=== PATIENT | female | born 1935 | race Caucasian/White ===

== ENCOUNTER 2021-04-01 10:33 | Emergency (ER) | payer MEDICARE, OTHER ==
[~2021-04-01] VITALS: Ht 157.5 cm; Wt 61.8 kg
[2021-04-01] MEDS ORDERED: NS IV 1000 ML 1,000 ML IV STA (11:09)
[2021-04-01 11:24] LABS: BASOPHILS % (AUTO) 1 % (0-10); EOSINOPHILS % (AUTO) 3 % (0-10); HEMATOCRIT 39 % (35-52); HEMOGLOBIN 12.5 G/DL (11.5-16.0); LYMPHOCYTES # (AUTO) 1.7 X 10^3 (1.0-4.0); LYMPHOCYTES % (AUTO) 31 % (12-44); MEAN CORPUSCULAR HEMOGLOBIN 29 PG (25-34); MEAN CORPUSCULAR HGB CONC 32 G/DL (32-36); MEAN CORPUSCULAR VOLUME 92 FL (80-99); MONOCYTES # (AUTO) 0.4 X 10^3 (0.0-1.0); MONOCYTES % (AUTO) 7 % (0-12); NEUTROPHILS # (AUTO) 3.2 X 10^3 (1.8-7.8); NEUTROPHILS % (AUTO) 58 % (42-75); PLATELET COUNT 313 10^3/uL (130-400); WHITE BLOOD COUNT 5.6 10^3/uL (4.3-11.0)
[2021-04-01 11:25] LABS: EOSINOPHILS # (AUTO) 0.2 10^3/uL (0.0-0.3)
--- NOTE | 2021-04-01 11:26 | ED General ---
General Chief Complaint: General Problems/Pain Stated Complaint: WEAKNESS IN ARMS AND LEGS | HIGH BP Nursing Triage Note: Patient reports she felt funny and "went down" on while shopping in [place], [place], states she went to Dr. Almonte's office that day and had her blood pressure checked, then went home. She reports bilateral arm and leg aches/generalized weakness/shakiness since . Nursing Sepsis Screen: No Definite Risk Source of Information: Patient, Spouse History of Present Illness Date Seen by Provider: Apr 01, 2021 Time Seen by Provider: 10:36 Initial Comments 85-year-old female presenting with complaints of weakness and shaking sensation in her arms and legs. She states that her arms not feel right. She had an episode on while they were shopping in [place] where she became weak in her legs and arms were shaking and her had to help her out to the car. She was laying in the back of the vehicle until he got to [place] and went to Dr. Almonte's office. However Dr. Almonte was not in and the nurse had reportedly taken her blood pressure and it was high for her according to the patient. She did not have any other testing or evaluation. She has an appointment to be seen Saturday with Dr. Grove for further evaluation. However today when she woke up she was feeling worse and so her brought her to the ED. He states that her legs have seemed improved as she is able to walk and get around better. She d oes have history of dementia and normally is doing things with her hands to help keep her mind busy. She usually does embroidery and coloring however she has not done any of that since Saturday. She states currently that she does not feel like she could do any embroidery or even thread a needle due to her weakness. She has had a mild headache but did not want to take any medicine for it. She Denies chest pain, vomiting, diarrhea, dysuria, abdominal pain, fall or head injury. She has had some nausea but not actually vomited. Associated Systoms: No Chest Pain, No Cough, No Diaphoresis, No Fever/Chills; Headaches, Loss of Appetite, Malaise, Nausea/Vomiting (nausea but no vomiting); No Rash, No Seizure; Shortness of Air; No Syncope; Weakness (generalized ) Allergies and Home Medications Allergies Coded Allergies: No Known Drug Allergies (Unverified , 04/01/21) Home Medications Cephalexin 500 Mg Capsule, 500 MG PO TID Prescribed by: ANDREW MARISCAL on 04/01/21 1258 Patient Home Medication List Home Medication List Reviewed: Yes Review of Systems Review of Systems Constitutional: see HPI EENTM: see HPI Respiratory: see HPI Cardiovascular: see HPI Gastrointestinal: see HPI Genitourinary: see HPI Musculoskeletal: no symptoms reported Skin: No rash Psychiatric/Neurological: See HPI Hematologic/Lymphatic: Denies Blood Clots Past Mqbdmrv-Cgqjuz-Knaegb Hx Past Med/Social Hx: Reviewed Nursing Past Med/Soc Hx Patient Social History Alcohol Use: Denies Use Smoking Status: Never a Smoker 2nd Hand Smoke Exposure: No Recent Infectious Disease Expo: No Recent Hopitalizations: No Seasonal Allergies Seasonal Allergies: No Past Medical History Surgeries: Yes Gallbladder, Pacemaker Respiratory: No Cardiac: Yes Neurological: Yes Dementia Genitourinary: No Gastrointestinal: No Musculoskeletal: No Endocrine: No HEENT: No Cancer: No Psychosocial: No Integumentary: No Physical Exam Vital Signs Vital Signs - First Documented 04/01/21 11:02 Temp 36.4 Pulse 80 Resp 15 B/P (MAP) 144/76 (98) Pulse Ox 96 O2 Delivery Room Air Capillary Refill : Less Than 3 Seconds Height, Weight, BMI Height: '" Weight: lbs. oz. kg; 24.00 BMI Method: General Appearance: No Apparent Distress, WD/WN HEENT: PERRL/EOMI, Pharynx Normal Neck: Full Range of Motion, Normal Inspection, Non Tender, Supple Respiratory: Chest Non Tender, Lungs Clear, Normal Breath Sounds, No Accessory Muscle Use, No Respiratory Distress Cardiovascular: Regular Rate, Rhythm, Normal Peripheral Pulses Gastrointestinal: Normal Bowel Sounds, No Pulsatile Mass, Non Tender, Soft Rectal: Deferred Extremity: Normal Capillary Refill, Normal Inspection, Normal Range of Motion, Non Tender, No Calf Tenderness, No Pedal Edema Neurologic/Psychiatric: Alert, Oriented x3, No Motor/Sensory Deficits (moving all extremities and sensation intact to light touch bilateral extremities upper and lower. 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 Norm as Tested Skin: Normal Color, Warm/Dry; No Rash Progress/Results/Core Measures Suspected Sepsis Recent Fever Within 48 Hours: No Infection Criteria Present: None New/Unexplained Altered Menta: No Sepsis Screen: No Definite Risk SIRS Temperature: Pulse: 80 Respiratory Rate: 15 Laboratory Tests 04/01/21 11:15: White Blood Count 5.6 Blood Pressure 144 /76 Mean: 98 Laboratory Tests 04/01/21 11:15: Creatinine 1.27, Platelet Count 313, Total Bilirubin 0.3 Results/Orders Lab Results Laboratory Tests Test 04/01/21 11:15 04/01/21 12:10 Range/Units White Blood Count 5.6 4.3-11.0 10^3/uL Red Blood Count 4.26 L 4.35-5.85 10^6/uL Hemoglobin 12.5 11.5-16.0 G/DL Hematocrit 39 35-52 % Mean Corpuscular Volume 92 80-99 FL Mean Corpuscular Hemoglobin 29 25-34 PG Mean Corpuscular Hemoglobin Concent 32 32-36 G/DL Red Cell Distribution Width 13.0 10.0-14.5 % Platelet Count 313 130-400 10^3/uL Mean Platelet Volume 9.0 7.4-10.4 FL Immature Granulocyte % (Auto) 0 % Neutrophils (%) (Auto) 58 42-75 % Lymphocytes (%) (Auto) 31 12-44 % Monocytes (%) (Auto) 7 0-12 % Eosinophils (%) (Auto) 3 0-10 % Basophils (%) (Auto) 1 0-10 % Neutrophils # (Auto) 3.2 1.8-7.8 X 10^3 Lymphocytes # (Auto) 1.7 1.0-4.0 X 10^3 Monocytes # (Auto) 0.4 0.0-1.0 X 10^3 Eosinophils # (Auto) 0.2 0.0-0.3 10^3/uL Basophils # (Auto) 0.0 0.0-0.1 10^3/uL Immature Granulocyte # (Auto) 0.0 0.0-0.1 10^3/uL Sodium Level 140 135-145 MMOL/L Potassium Level 4.1 3.6-5.0 MMOL/L Chloride Level 106 98-107 MMOL/L Carbon Dioxide Level 28 21-32 MMOL/L Anion Gap 6 5-14 MMOL/L Blood Urea Nitrogen 11 7-18 MG/DL Creatinine 1.27 0.60-1.30 MG/DL Estimat Glomerular Filtration Rate 40 BUN/Creatinine Ratio 9 Glucose Level 96 70-105 MG/DL Calcium Level 8.9 8.5-10.1 MG/DL Corrected Calcium 9.1 8.5-10.1 MG/DL Magnesium Level 1.9 1.6-2.4 MG/DL Total Bilirubin 0.3 0.1-1.0 MG/DL Aspartate Amino Transf (AST/SGOT) 14 5-34 U/L Alanine Aminotransferase (ALT/SGPT) 8 0-55 U/L Alkaline Phosphatase 82 40-136 U/L Troponin I < 0.30 <0.30 NG/ML Pro-B-Type Natriuretic Peptide 1680.0 H <75.0 PG/ML Total Protein 6.2 L 6.4-8.2 GM/DL Albumin 3.7 3.2-4.5 GM/DL Salicylates Level < 0.3 L 5.0-20.0 MG/DL Acetaminophen Level < 10 L 10-30 UG/ML Serum Alcohol < 10 <10 MG/DL Urine Color YELLOW Urine Clarity CLOUDY Urine pH 7.0 5-9 Urine Specific [place] 1.015 L 1.016-1.022 Urine Protein NEGATIVE NEGATIVE Urine Glucose (UA) NEGATIVE NEGATIVE Urine Ketones NEGATIVE NEGATIVE Urine Nitrite NEGATIVE NEGATIVE Urine Bilirubin NEGATIVE NEGATIVE Urine Urobilinogen 0.2 < = 1.0 MG/DL Urine Leukocyte Esterase 2+ H NEGATIVE Urine RBC (Auto) NEGATIVE NEGATIVE Urine RBC NONE /HPF Urine WBC 50-100 H /HPF Urine Squamous Epithelial Cells 10-25 H /HPF Urine Crystals NONE /LPF Urine Bacteria MODERATE H /HPF Urine Casts NONE /LPF Urine Mucus NEGATIVE /LPF Urine Culture Indicated YES Urine Opiates Screen NEGATIVE NEGATIVE Urine Oxycodone Screen NEGATIVE NEGATIVE Urine Methadone Screen NEGATIVE NEGATIVE Urine Propoxyphene Screen NEGATIVE NEGATIVE Urine Barbiturates Screen NEGATIVE NEGATIVE Ur Tricyclic Antidepressants Screen POSITIVE H NEGATIVE Urine Phencyclidine Screen NEGATIVE NEGATIVE Urine Amphetamines Screen NEGATIVE NEGATIVE Urine Methamphetamines Screen NEGATIVE NEGATIVE Urine Benzodiazepines Screen NEGATIVE NEGATIVE Urine Cocaine Screen NEGATIVE NEGATIVE Urine Cannabinoids Screen NEGATIVE NEGATIVE My Orders Orders - ANDREW MARISCAL MD Ua Culture If Indicated (04/01/21 10:42) Cbc With Automated Diff (04/01/21 11:07) Comprehensive Metabolic Panel (04/01/21 11:07) Alcohol (04/01/21 11:07) Drug Screen Stat (Urine) (04/01/21 11:07) Acetaminophen (04/01/21 11:07) Salicylate (04/01/21 11:07) Ekg Tracing (04/01/21 11:07) Ed Iv/Invasive Line Start (04/01/21 11:07) Monitor-Rhythm Ecg Trace Only (04/01/21 11:07) Magnesium (04/01/21 11:07) Troponin I Fs (04/01/21 11:07) Probnp Fs (04/01/21 11:07) Ct Head Wo (04/01/21 11:07) Ns Iv 1000 Ml (Sodium Chloride 0.9%) (04/01/21 11:09) Chest 1 View Ap/Pa Only (04/01/21 11:09) Urine Culture (04/01/21 12:10) Ceftriaxone (Rocephin) (04/01/21 12:41) Vital Signs/I&O 04/01/21 11:02 Temp 36.4 Pulse 80 Resp 15 B/P (MAP) 144/76 (98) Pulse Ox 96 O2 Delivery Room Air Capillary Refill : Less Than 3 Seconds Blood Pressure Mean: 98 Progress Note #1: Progress Note Check labs as well as electrolytes with blood work and urinalysis to look for UTI her electrolyte abnormality to cause her symptoms. CT of her head to look for possible stroke or mass. Chest x-ray to look for pneumonia or fluid collection. Cardiac enzymes and EKG look for heart attack or cardiac source. G julián IV fluids to help with hydration as patient states she cannot urinate. She reports urinating prior to coming to the ED so she could not pee when she got here. Differential diagnosis includes UTI, electrolyte imbalance, stroke, cardiac event, [place], pneumonia, Progress Note #2: Progress Note CBC and chemistry are stable without acute significant amount. Her cardiac enzymes are negative for acute coronary syndrome or pneumonia. Her chest x-ray does not show acute process and her CT head shows chronic age-related changes. She has findings for urinary tract infection on her UA. Her drug and toxin show only the tricyclic's that she is prescribed. As she is not showing signs of stroke, heart attack, pneumonia, electrolyte imbalance will treat for the UA showing UTI. Cover with Rocephin here and discharged on cephalexin. Counseled on follow-up and return precautions. Advised to keep the appointment on Saturday to see Dr. Almonte and return sooner if more concerns and problems. Push fluids at home and take the full course of antibiotics. ECG Initial ECG Impression Date: Apr 01, 2021 Initial ECG Impression Time: 11:19 Initial ECG Rate: 74 Initial ECG Rhythm: Normal Sinus Initial ECG Comparisson: No Previous ECG Available Comment Atrial sensed ventricular paced rhythm with a rate of [address] elevation. DC interval 176 ms. QT interval 487 ms with a QTc interval 541 ms. There is no prior tracing available for comparison. Diagnostic Imaging Diagonstic Imaging: Xray Plain Films/CT/US/NM/MRI: chest Comments [email or web address] [place] [place] NAME: [employer] REC#: [id number] PT STATUS: REG ER : 1935 PHYSICIAN: ANDREW MARISCAL MD ADMIT DATE: 04/01/21/ER FS Draft Date of Exam:04/01/21 CHEST 1 VIEW AP/PA ONLY INDICATION: Shortness of breath. No prior examinations are available for comparison. FINDINGS: The heart size is normal. Lungs are clear. No pleural effusion, pneumothorax or pneumonia. Mediastinum is unremarkable. Pacemaker overlies left hemithorax. IMPRESSION: No acute cardiopulmonary abnormality. Dictated on workstation # [id number] Dict: 04/01/21 1137 Trans: 04/01/21 1144 [facility] [id number] Interpreted by: KRISH SHEIKH MD Electronically signed by: Reviewed: Reviewed by Me Diagonstic Imaging: CT Plain Films/CT/US/NM/MRI: head Comments [email or web address] [place], [place] NAME: [employer] REC#: [id number] PT STATUS: REG ER : 1935 PHYSICIAN: ANDREW MARISCAL MD ADMIT DATE: 04/01/21/ER FS Draft Date of Exam:04/01/21 CT HEAD WO PROCEDURE: CT head without contrast. TECHNIQUE: Multiple contiguous axial images were obtained through the brain without the use of intravenous contrast. Auto Exposure Controls were utilized during the CT exam to meet ALARA standards for radiation dose reduction. INDICATION: Weakness and dizziness. FINDINGS: There is prominence of the ventricles and sulci. There is no hydrocephalus or cerebral edema. There is no midline shift or mass-effect. There is no intracranial mass, hemorrhage, or extra-axial fluid collection. There is some diffuse decreased attenuation of the periventricular white matter which is nonspecific. The visualized paranasal sinuses and mastoid air cells are clear. There are no regional areas of decreased attenuation appreciated to suggest an acute CVA. IMPRESSION: 1. No acute intracranial process. 2. Age-appropriate atrophy. 3. Decreased attenuation of the periventricular white matter which is nonspecific, however, likely reflects senescent change and/or chronic small vessel ischemic disease. Dictated on workstation # [id number] Dict: 04/01/21 1138 Trans: 04/01/21 1144 [facility] [id number] Interpreted by: KRISH SHEIKH MD Electronically signed by: Reviewed: Reviewed by Me Departure Impression Primary Impression: Acute cystitis without hematuria Additional Impression: General weakness Disposition: 01 HOME, SELF-CARE Condition: Stable Departure-Patient Inst. Decision time for Depature: 12:57 Referrals: PEDRO LUIS ALMONTE MD (PCP/Family) Primary Care Physician Patient Instructions: Weakness ED, Urinary Tract Infection, Adult ED Add. Discharge Instructions: Make sure to take the full course of antibiotics. Drink plenty of water and electrolyte drinks to stay hydrated and help flush out the urine infection. Check back with Dr. Almonte on Saturday as scheduled or return sooner if more problems All discharge instructions reviewed with patient and/or family. Voiced understanding. Scripts Cephalexin (Cephalexin) 500 Mg Capsule 500 MG PO TID for UTI for 7 Days, #21 CAP 0 Refills Prov: ANDREW MARISCAL MD 04/01/21 ANDREW MARISCAL MD Apr 01, 2021 11:26
[2021-04-01 11:39] LABS: MAGNESIUM 1.9 MG/DL (1.6-2.4); SODIUM 140 MMOL/L (135-145)
[2021-04-01 11:40] LABS: ACETAMINOPHEN < 10 UG/ML (10-30); ALANINE AMINOTRANSFERASE 8 U/L (0-55); ALBUMIN 3.7 GM/DL (3.2-4.5); ALKALINE PHOSPHATASE 82 U/L (40-136); BILIRUBIN,TOTAL 0.3 MG/DL (0.1-1.0); BUN/CREATININE RATIO 9; CALCIUM 8.9 MG/DL (8.5-10.1); CARBON DIOXIDE 28 MMOL/L (21-32); CHLORIDE 106 MMOL/L (98-107); CREATININE SERUM 1.27 MG/DL (0.60-1.30); GFR ESTIMATED 40; GLUCOSE 96 MG/DL (70-105); POTASSIUM 4.1 MMOL/L (3.6-5.0); SALICYLATE < 0.3 MG/DL (5.0-20.0); TOTAL PROTEIN 6.2 GM/DL (6.4-8.2)
--- NOTE | 2021-04-01 11:44 | Diagnostic Imaging Report ---
PROCEDURE: CT head without contrast. TECHNIQUE: Multiple contiguous axial images were obtained through the brain without the use of intravenous contrast. Auto Exposure Controls were utilized during the CT exam to meet ALARA standards for radiation dose reduction. INDICATION: Weakness and dizziness. FINDINGS: There is prominence of the ventricles and sulci. There is no hydrocephalus or cerebral edema. There is no midline shift or mass-effect. There is no intracranial mass, hemorrhage, or extra-axial fluid collection. There is some diffuse decreased attenuation of the periventricular white matter which is nonspecific. The visualized paranasal sinuses and mastoid air cells are clear. There are no regional areas of decreased attenuation appreciated to suggest an acute CVA. IMPRESSION: 1. No acute intracranial process. 2. Age-appropriate atrophy. 3. Decreased attenuation of the periventricular white matter which is nonspecific, however, likely reflects senescent change and/or chronic small vessel ischemic disease. Dictated by: Dictated on workstation # [id number]
--- NOTE | 2021-04-01 11:44 | Diagnostic Imaging Report ---
INDICATION: Shortness of breath. No prior examinations are available for comparison. FINDINGS: The heart size is normal. Lungs are clear. No pleural effusion, pneumothorax or pneumonia. Mediastinum is unremarkable. Pacemaker overlies left hemithorax. IMPRESSION: No acute cardiopulmonary abnormality. Dictated by: Dictated on workstation # [id number]
[2021-04-01 12:23] LABS: BACTERIA,URINE MODERATE /HPF; BILIRUBIN,URINE NEGATIVE (NEGATIVE); CLARITY,URINE CLOUDY; COLOR,URINE YELLOW; GLUCOSE, URINE (UA) NEGATIVE (NEGATIVE); KETONES,URINE NEGATIVE (NEGATIVE); LEUKOCYTE ESTERASE ,URINE 2+ (NEGATIVE); NITRITE,URINE NEGATIVE (NEGATIVE); PROTEIN,URINE NEGATIVE (NEGATIVE); WBC,URINE 50-100 /HPF
[2021-04-01 12:30] LABS: AMPHETAMINE SCREEN, URINE NEGATIVE (NEGATIVE); BARBITURATE SCREEN URINE NEGATIVE (NEGATIVE); BENZODIAZEPINES SCREEN URINE NEGATIVE (NEGATIVE); CANNABINOID SCREEN, URINE NEGATIVE (NEGATIVE); COCAINE SCREEN URINE NEGATIVE (NEGATIVE); METHADONE STAT NEGATIVE (NEGATIVE); METHAMPHETAMINE SCREEN URINE S NEGATIVE (NEGATIVE); OPIATE SCREEN URINE NEGATIVE (NEGATIVE); OXYCODONE STAT NEGATIVE (NEGATIVE); PROPOXYPHENE STAT NEGATIVE (NEGATIVE); TRICYCLIC ANTIDEPRESSANTS SCRE POSITIVE (NEGATIVE)
[2021-04-01] MEDS ORDERED: cefTRIAXone 1,000 MG in WATER (STERILE) FOR INJECTION 10 ML IV STA (12:41)
[2021-04-01] MEDS ORDERED: CEPH500C PO (12:58)
[2021-04-01 13:15] VITALS: BP 132/70
== END 2021-04-01 13:15 | disposition home or self-care (01) ==
LOC: EDUNIT# 10:33 → ER FS 10:35
DX: N30.00 Acute cystitis without hematuria (principal); R53.1 Weakness
CPT/HCPCS: 36415; 70450; 71045; 80053; 80306; 81000; 83735; 83880; 84484; 85025; 87088; 93005; 93041; 99284; G0480 ×3; 80320; 80329

== ENCOUNTER 2022-08-13 10:57 | Emergency (ER) | payer MEDICARE, OTHER ==
[~2022-08-13] VITALS: Ht 190 cm; Wt 65.0 kg
[~2022-08-13 10:57] MED LIST: CEPH500C PO
[2022-08-13 11:25] VITALS: BP 154/53
--- NOTE | 2022-08-13 11:34 | ED General ---
General Chief Complaint: General Problems/Pain Stated Complaint: DIZZINESS Nursing Triage Note: Patient has presented to ER with cc of lightheaded and concerned about the contusions on her face from a fall a week ago. Patient reports that she stubbed her toe and fell - landing on her face. She reports that she has had some nausea but little pain. She went to urgent care and was sent to ER for evaluation. Source of Information: Patient, Family, Other (urgent care RN) History of Present Illness Date Seen by Provider: Aug 13, 2022 Time Seen by Provider: 11:03 Initial Comments 86-year-old female presenting as a referral from urgent care after a fall. Tripped and fell on her face last Saturday, did not pass out, denies really having much pain with it. She says she struggles with being lightheaded and feeling off balance and has for quite some time. She has a cane that she uses sometimes. Denies any chest pain, shortness of breath, vertigo, abdominal pain, nausea, vomiting, diarrhea, focal weakness or numbness, vision changes, headache, neck pain, back pain, or any other concerns. She is unsure of her last tetanus vaccine. She says her face healed over and has completely scabbed up. Allergies and Home Medications Allergies Coded Allergies: No Known Drug Allergies (Unverified , 04/01/21) Patient Home Medication List Home Medication List Reviewed: Yes Cephalexin (Cephalexin) 500 Mg Capsule, 500 MG PO TID Prescribed by: ANDREW MARISCAL on 04/01/21 1258 Nitrofurantoin Monohyd/M-Cryst (Macrobid 100 mg Capsule) 100 Mg Capsule, 1 TAB PO BID Prescribed by: NAVJOT HURST on 08/13/22 1222 Review of Systems Review of Systems Constitutional: dizziness; No fever EENTM: no symptoms reported Respiratory: no symptoms reported Cardiovascular: no symptoms reported Gastrointestinal: no symptoms reported Genitourinary: no symptoms reported Musculoskeletal: no symptoms reported Skin: see HPI Psychiatric/Neurological: No Symptoms Reported Hematologic/Lymphatic: No Symptoms Reported Immunological/Allergic: no symptoms reported All Other Systems Reviewed Negative Unless Noted: Yes Past Lkpnvae-Rjfkmo-Gbyqru Hx Patient Social History Tobacco Use?: No Use of E-Cig and/or Vaping dev: No Substance use?: No Alcohol Use?: No Pt feels they are or have been: No Seasonal Allergies Seasonal Allergies: No Past Medical History Surgeries: Yes Gallbladder, Pacemaker Respiratory: No Cardiac: Yes Neurological: Yes Dementia Genitourinary: No Gastrointestinal: No Musculoskeletal: No Endocrine: No HEENT: No Cancer: No Psychosocial: No Integumentary: No Physical Exam Vital Signs Vital Signs - First Documented 08/13/22 11:25 Temp 36.2 Pulse 82 Resp 18 B/P (MAP) 154/53 (86) Pulse Ox 98 O2 Delivery Room Air Capillary Refill : Height, Weight, BMI Height: '" Weight: lbs. oz. kg; 18.00 BMI Method: General Appearance: No Apparent Distress, WD/WN Eyes: Bilateral Eye Normal Inspection, Bilateral Eye PERRL, Bilateral Eye EOMI HEENT: PERRL/EOMI, Normal ENT Inspection, Pharynx Normal Neck: Full Range of Motion, Normal Inspection, Non Tender, Supple Respiratory: Chest Non Tender, Lungs Clear, Normal Breath Sounds, No Accessory Muscle Use, No Respiratory Distress Cardiovascular: Regular Rate, Rhythm, No Edema, Normal Peripheral Pulses Gastrointestinal: Normal Bowel Sounds, Non Tender, Soft; No Distended, No Guarding Back: Normal Inspection, No CVA Tenderness, No Vertebral Tenderness Extremity: Normal Capillary Refill, Normal Inspection, Normal Range of Motion, Non Tender, No Calf Tenderness, No Pedal Edema Neurologic/Psychiatric: Alert, Oriented x3, No Motor/Sensory Deficits, Normal Mood/Affect, bracer II-XII Norm as Tested, Other (Normal gait) Skin: Normal Color, Warm/Dry Lymphatic: No Adenopathy Progress/Results/Core Measures Suspected Sepsis SIRS Temperature: Pulse: 82 Respiratory Rate: 18 Laboratory Tests 08/13/22 11:47: White Blood Count 6.2 Blood Pressure 154 /53 Mean: 86 Laboratory Tests 08/13/22 11:47: Creatinine 1.19, Platelet Count 268 Results/Orders Lab Results Laboratory Tests Test 08/13/22 11:45 08/13/22 11:47 Range/Units Urine Color YELLOW Urine Clarity TURBID Urine pH 7.0 5-9 Urine Specific [place] 1.020 1.016-1.022 Urine Protein NEGATIVE NEGATIVE Urine Glucose (UA) NEGATIVE NEGATIVE Urine Ketones NEGATIVE NEGATIVE Urine Nitrite NEGATIVE NEGATIVE Urine Bilirubin NEGATIVE NEGATIVE Urine Urobilinogen 0.2 < = 1.0 MG/DL Urine Leukocyte Esterase 3+ H NEGATIVE Urine RBC (Auto) TRACE-I H NEGATIVE Urine RBC NONE /HPF Urine WBC >100 H /HPF Urine Squamous Epithelial Cells 2-5 /HPF Urine Crystals NONE /LPF Urine Bacteria FEW H /HPF Urine Casts NONE /LPF Urine Mucus NEGATIVE /LPF Urine Culture Indicated YES White Blood Count 6.2 4.3-11.0 10^3/uL Red Blood Count 4.17 3.80-5.11 10^6/uL Hemoglobin 12.1 11.5-16.0 g/dL Hematocrit 38 35-52 % Mean Corpuscular Volume 90 80-99 fL Mean Corpuscular Hemoglobin 29 25-34 pg Mean Corpuscular Hemoglobin Concent 32 32-36 g/dL Red Cell Distribution Width 12.9 10.0-14.5 % Platelet Count 268 130-400 10^3/uL Mean Platelet Volume 9.0 9.0-12.2 fL Immature Granulocyte % (Auto) 0 % Neutrophils (%) (Auto) 60 42-75 % Lymphocytes (%) (Auto) 32 12-44 % Monocytes (%) (Auto) 6 0-12 % Eosinophils (%) (Auto) 2 0-10 % Basophils (%) (Auto) 1 0-10 % Neutrophils # (Auto) 3.7 1.8-7.8 10^3/uL Lymphocytes # (Auto) 2.0 1.0-4.0 10^3/uL Monocytes # (Auto) 0.4 0.0-1.0 10^3/uL Eosinophils # (Auto) 0.1 0.0-0.3 10^3/uL Basophils # (Auto) 0.1 0.0-0.1 10^3/uL Immature Granulocyte # (Auto) 0.0 0.0-0.1 10^3/uL Sodium Level 139 135-145 MMOL/L Potassium Level 4.6 3.6-5.0 MMOL/L Chloride Level 104 98-107 MMOL/L Carbon Dioxide Level 27 21-32 MMOL/L Anion Gap 8 5-14 MMOL/L Blood Urea Nitrogen 11 7-18 MG/DL Creatinine 1.19 0.60-1.30 MG/DL Estimat Glomerular Filtration Rate 45 BUN/Creatinine Ratio 9 Glucose Level 85 70-105 MG/DL Calcium Level 8.8 8.5-10.1 MG/DL My Orders Orders - NAVJOT HURST MD Basic Metabolic Panel (08/13/22 11:28) Cbc With Automated Diff (08/13/22 11:28) Ua Culture If Indicated (08/13/22 11:28) Ct Head Wo (08/13/22 11:28) Chest 1 View Ap/Pa Only (08/13/22 11:28) Dipht,Pertuss(Acell),Tet Adult (Boostrix (08/13/22 11:45) Urine Culture (08/13/22 11:45) Medications Given in ED Current Medications Medications Dose Ordered Sig/Katie Route Start Time Stop Time Status Last Admin Dose Admin Diphtheria/ Tetanus/Acell Pertussis 0.5 ml ONCE ONCE IM 08/13/22 11:45 08/13/22 11:46 DC 08/13/22 11:56 0.5 ML Vital Signs/I&O 08/13/22 11:25 Temp 36.2 Pulse 82 Resp 18 B/P (MAP) 154/53 (86) Pulse Ox 98 O2 Delivery Room Air Capillary Refill : Blood Pressure Mean: 86 Progress Note : Progress Note 86-year-old female with above history coming in due to dizziness after hitting her head last week. ABCs were intact and vitals were stable on presentation. GCS 15 and neuro exam is intact. Has a scab to her nose but otherwise no tenderness along her face or any extremities. CT head with no acute findings. Chest x-ray on my interpretation with no displaced rib fractures, no pneumot horax, no obvious pulmonary contusion or infection. Basic labs obtained including CBC and BMP which were essentially unremarkable. Urinalysis did show concerns for infection and she is describing some urinary frequency. We will have her follow-up as an outpatient with her primary physician for PT referral and balance training. Diagnostic Imaging Diagonstic Imaging: Xray (chest), CT (head) Comments NAME: DEXTER AGUERO J MED REC#: [id number] PT STATUS: REG ER : 1935 PHYSICIAN: NAVJOT HURST MD ADMIT DATE: 08/13/22/ER FS Draft Date of Exam:08/13/22 CHEST 1 VIEW AP/PA ONLY INDICATION: Dizziness. TECHNIQUE/COMPARISON: A frontal chest was obtained at 11:31 AM and compared with 04/01/2021. FINDINGS: The heart and mediastinal silhouette are normal in appearance. The multilead pacemaker device is unchanged. There is no focal infiltrate, pneumothorax, or pleural fluid. IMPRESSION: Unchanged pacemaker device with no acute process in the chest. Dictated on workstation # [id number] Dict: 08/13/22 1219 Trans: 08/13/22 1221 DEMETRICE [id number] Interpreted by: WANDA FRASER MD Electronically signed by: [facility] [place], [place] NAME: DEXTER AGUERO [facility] REC#: [id number] PT STATUS: REG ER : 1935 PHYSICIAN: NAVJOT HURST MD ADMIT DATE: 08/13/22/ER FS Draft Date of Exam:08/13/22 CT HEAD WO EXAMINATION: CT head without contrast. TECHNIQUE: Multiple contiguous axial images were obtained through the brain without the use of intravenous contrast. All CT scans use one or more of the following dose optimizing techniques: automated exposure control, MA and/or KvP adjustment based on patient size and exam type or iterative reconstruction. HISTORY: Fall one week ago. Hit head. COMPARISON: 04/01/2021. FINDINGS: No large acute territorial ischemia, mass, or hemorrhage. No midline shift or mass effect. Decreased attenuation is seen in the periventricular and subcortical white matter. The ventricles and cortical sulci are prominent. The basilar cisterns are patent and unremarkable. The orbits are normal. Paranasal sinuses are normal. Mastoid air cells are clear. No soft tissue abnormality is seen. No osseus lesions or fractures are seen. IMPRESSION: 1. No large acute territorial ischemia, mass, or hemorrhage. 2. Chronic microvascular disease. 3. Generalized parenchymal volume loss. Dictated on workstation # [id number] Dict: 08/13/22 1207 Trans: 08/13/22 1211 BIANKA [id number] Interpreted by: ZENY WRIGHT DO Electronically signed by: Departure Impression Primary Impression: Closed head injury Qualified Codes: S09.90XA - Unspecified injury of head, initial encounter Additional Impression: UTI (urinary tract infection) Qualified Codes: N30.00 - Acute cystitis without hematuria Disposition: 01 HOME, SELF-CARE Condition: Stable Departure-Patient Inst. Decision time for Depature: 12:21 Referrals: PEDRO LUIS ALMONTE MD (PCP) Primary Care Physician Patient Instructions: Concussion, Adult ED, Urinary Tract Infection, Adult (DC) Add. Discharge Instructions: You do have a mild UTI as well as a concussion. Feeling lightheaded and dizzy after concussion is normal. Take Tylenol as needed for headaches. Be sure to drink plenty of fluids. If things are not improving within the next week or so, follow-up with your regular doctor as you may need a referral to a specialist. I also recommend getting outpatient physical therapy to work on balance training Scripts Nitrofurantoin Monohyd/M-Cryst (Macrobid 100 mg Capsule) 100 Mg Capsule 1 TAB PO BID for 5 Days, #10 CAP Prov: NAVJOT HURST MD 08/13/22 NAVJOT HURST MD Aug 13, 2022 11:34
[2022-08-13] MEDS ORDERED: TETANUS,DIPTH,PERTUSS P/F (BOOSTRIX) 0.5 ML VIAL IM ONE (11:45)
[2022-08-13 11:50] LABS: BASOPHILS # (AUTO) 0.1 10^3/uL (0.0-0.1); BASOPHILS % (AUTO) 1 % (0-10); EOSINOPHILS # (AUTO) 0.1 10^3/uL (0.0-0.3); EOSINOPHILS % (AUTO) 2 % (0-10); HEMATOCRIT 38 % (35-52); HEMOGLOBIN 12.1 g/dL (11.5-16.0); LYMPHOCYTES % (AUTO) 32 % (12-44); MEAN CORPUSCULAR HEMOGLOBIN 29 pg (25-34); MEAN CORPUSCULAR HGB CONC 32 g/dL (32-36); MEAN CORPUSCULAR VOLUME 90 fL (80-99); MONOCYTES # (AUTO) 0.4 10^3/uL (0.0-1.0); MONOCYTES % (AUTO) 6 % (0-12); NEUTROPHILS # (AUTO) 3.7 10^3/uL (1.8-7.8); NEUTROPHILS % (AUTO) 60 % (42-75); PLATELET COUNT 268 10^3/uL (130-400); WHITE BLOOD COUNT 6.2 10^3/uL (4.3-11.0)
[2022-08-13 11:57] LABS: BILIRUBIN,URINE NEGATIVE (NEGATIVE); CLARITY,URINE TURBID; COLOR,URINE YELLOW; GLUCOSE, URINE (UA) NEGATIVE (NEGATIVE); KETONES,URINE NEGATIVE (NEGATIVE); LEUKOCYTE ESTERASE ,URINE 3+ (NEGATIVE); NITRITE,URINE NEGATIVE (NEGATIVE); PROTEIN,URINE NEGATIVE (NEGATIVE)
[2022-08-13 12:02] LABS: BACTERIA,URINE FEW /HPF; WBC,URINE >100 /HPF
--- NOTE | 2022-08-13 12:11 | Diagnostic Imaging Report ---
EXAMINATION: CT head without contrast. TECHNIQUE: Multiple contiguous axial images were obtained through the brain without the use of intravenous contrast. All CT scans use one or more of the following dose optimizing techniques: automated exposure control, MA and/or KvP adjustment based on patient size and exam type or iterative reconstruction. HISTORY: Fall one week ago. Hit head. COMPARISON: 04/01/2021. FINDINGS: No large acute territorial ischemia, mass, or hemorrhage. No midline shift or mass effect. Decreased attenuation is seen in the periventricular and subcortical white matter. The ventricles and cortical sulci are prominent. The basilar cisterns are patent and unremarkable. The orbits are normal. Paranasal sinuses are normal. Mastoid air cells are clear. No soft tissue abnormality is seen. No osseus lesions or fractures are seen. IMPRESSION: 1. No large acute territorial ischemia, mass, or hemorrhage. 2. Chronic microvascular disease. 3. Generalized parenchymal volume loss. Dictated by: Dictated on workstation # [id number]
[2022-08-13 12:15] LABS: CALCIUM 8.8 MG/DL (8.5-10.1); CREATININE SERUM 1.19 MG/DL (0.60-1.30); POTASSIUM 4.6 MMOL/L (3.6-5.0)
[2022-08-13] MEDS ORDERED: NITR-65 PO (12:22)
--- NOTE | 2022-08-13 12:22 | Diagnostic Imaging Report ---
INDICATION: Dizziness. TECHNIQUE/COMPARISON: A frontal chest was obtained at 11:31 AM and compared with 04/01/2021. FINDINGS: The heart and mediastinal silhouette are normal in appearance. The multilead pacemaker device is unchanged. There is no focal infiltrate, pneumothorax, or pleural fluid. IMPRESSION: Unchanged pacemaker device with no acute process in the chest. Dictated by: Dictated on workstation # [id number]
== END 2022-08-13 12:25 | disposition home or self-care (01) ==
LOC: EDUNIT# 10:57 → ER FS 10:58
DX: S09.90XA Unspecified injury of head, initial encounter (principal); N39.0 Urinary tract infection, site not specified; Z23 Encounter for immunization; Z28.310 Unvaccinated for COVID-19; W01.0XXA Fall on same level from slipping, tripping and stumbling without subsequent striking against object, initial encounter
CPT/HCPCS: 36415; 70450; 71045; 80048; 81000; 85025; 87077; 87088; 87186; 90715

== ENCOUNTER 2022-08-20 08:24 | Emergency (ER) | payer MEDICARE, OTHER ==
[~2022-08-20] VITALS: Ht 157.5 cm; Wt 63.5 kg
[~2022-08-20 08:24] MED LIST changes: +NITR-65 PO
[2022-08-20] MEDS ORDERED: NS IV 1000 ML 1,000 ML IV STA (08:45)
[2022-08-20 08:54] LABS: BASOPHILS # (AUTO) 0.1 10^3/uL (0.0-0.1); BASOPHILS % (AUTO) 1 % (0-10); EOSINOPHILS # (AUTO) 0.3 10^3/uL (0.0-0.3); EOSINOPHILS % (AUTO) 3 % (0-10); HEMATOCRIT 38 % (35-52); HEMOGLOBIN 12.3 g/dL (11.5-16.0); LYMPHOCYTES % (AUTO) 10 % (12-44); MEAN CORPUSCULAR HEMOGLOBIN 29 pg (25-34); MEAN CORPUSCULAR HGB CONC 33 g/dL (32-36); MEAN CORPUSCULAR VOLUME 90 fL (80-99); MEAN PLATELET VOLUME 9.2 fL (9.0-12.2); MONOCYTES # (AUTO) 0.6 10^3/uL (0.0-1.0); MONOCYTES % (AUTO) 6 % (0-12); NEUTROPHILS # (AUTO) 8.1 10^3/uL (1.8-7.8); NEUTROPHILS % (AUTO) 81 % (42-75); PLATELET COUNT 211 10^3/uL (130-400)
--- NOTE | 2022-08-20 08:59 | ED General ---
General Chief Complaint: General Problems/Pain Stated Complaint: GENERAL WEAKNESS Source of Information: Patient, Old Records, Spouse Exam Limitations: No Limitations History of Present Illness Date Seen by Provider: Aug 20, 2022 Time Seen by Provider: 08:26 Initial Comments 86-year-old female presenting with complaints of frequent falls and generalized weakness. She was seen for the similar complaints last August 13. She reports falling backwards on Saturday 08/18 but denies hitting her head or losing consciousness. She has had pain to back, pelvis and suprapubic area since the fall. She has had some nausea but denies vomiting, diarrhea. Has constipation. She was found to have a urinary tract infection last week and started on Macrobid. Culture showed she had Proteus mirabilis in her urine and it was resistant to nitrofurantoin. On August 17 she was changed to Bactrim DS for 5 days. Patient states that she has been taking that and took a dose this morning prior to coming to the emergency department. Yesterday she felt like she could not get her legs to work and this morning she felt like she could not get her head to turn when she first woke up. She states that she feels better now but is still feeling weak overall. She denies chills, cough, shortness of breath, pain with urination, frequency. She states that she has had some dizziness as well as felt like she was hot in the last 2-3 days. Severity: Moderate Associated Systoms: No Chest Pain, No Cough, No Diaphoresis, No Headaches; Loss of Appetite, Malaise, Nausea/Vomiting (nausea without vomiting); No Rash, No Seizure, No Shortness of Air; Syncope (near syncope with frequent falls), Weakness (generalized) Allergies and Home Medications Allergies Coded Allergies: No Known Drug Allergies (Unverified , 04/01/21) Patient Home Medication List Home Medication List Reviewed: Yes Discontinued Medications Cephalexin (Cephalexin) 500 Mg Capsule, 500 MG PO TID Prescribed by: ANDREW MARISCAL on 04/01/21 1258 Last Action: Discontinued Nitrofurantoin Monohyd/M-Cryst (Macrobid 100 mg Capsule) 100 Mg Capsule, 1 TAB PO BID Prescribed by: NAVJOT HURST on 08/13/22 1222 Last Action: Discontinued Review of Systems Review of Systems Constitutional: No chills; fever (subjective feels hot in last 2-3 days) EENTM: No ear discharge, No ear pain, No blurred vision, No double vision, No eye pain, No epistaxis, No nose congestion Respiratory: No cough, No short of breath, No stridor, No wheezing Cardiovascular: No chest pain, No edema, No palpitations Gastrointestinal: see HPI Genitourinary: No dysuria, No frequency, No hematuria Musculoskeletal: see HPI Skin: No rash Psychiatric/Neurological: Denies Headache, Denies Numbness, Denies Paresthesia; Weakness (generalized) Hematologic/Lymphatic: Denies Blood Clots Past Npgikxw-Djoggs-Uoscam Hx Patient Social History Tobacco Use?: No Smoking Status: Never a Smoker Smokeless Tobacco Frequency: Never a User Use of E-Cig and/or Vaping dev: No Use of E-Cig and/or Vaping Blu: Never a User Substance use?: No Alcohol Use?: No Pt feels they are or have been: No Seasonal Allergies Seasonal Allergies: No Past Medical History Surgeries: Yes Gallbladder, Pacemaker Respiratory: No Cardiac: Yes Neurological: Yes Dementia Genitourinary: No Gastrointestinal: No Musculoskeletal: No Endocrine: No HEENT: No Cancer: No Psychosocial: No Integumentary: No Physical Exam Vital Signs Vital Signs - First Documented 08/20/22 08:27 Temp 36.4 Pulse 95 Resp 16 B/P (MAP) 124/60 (81) Pulse Ox 92 O2 Delivery Room Air Capillary Refill : Height, Weight, BMI Height: '" Weight: lbs. oz. kg; 18.00 BMI Method: General Appearance: No Apparent Distress, WD/WN HEENT: PERRL/EOMI, Pharynx Normal Neck: Full Range of Motion, Normal Inspection, Non Tender, Supple Respiratory: Chest Non Tender, Lungs Clear, No Accessory Muscle Use, No Respiratory Distress, Decreased Breath Sounds Cardiovascular: Regular Rate, Rhythm, Normal Peripheral Pulses Gastrointestinal: Normal Bowel Sounds, No Pulsatile Mass, Non Tender, Soft Rectal: Deferred Back: No CVA Tenderness, No Vertebral Tenderness Extremity: Normal Capillary Refill, Normal Inspection, No Pedal Edema Neurologic/Psychiatric: Alert, Oriented x3, No Motor/Sensory Deficits, survey compiler II- XII Norm as Tested Skin: Normal Color, Warm/Dry; No Rash Progress/Results/Core Measures Suspected Sepsis SIRS Temperature: Pulse: Respiratory Rate: Laboratory Tests 08/20/22 08:37: White Blood Count 10.0 Blood Pressure / Mean: Laboratory Tests 08/20/22 08:37: Creatinine 1.31H, INR Comment 0.9, Platelet Count 211, Total Bilirubin 0.4 Results/Orders Lab Results Laboratory Tests Test 08/20/22 08:37 08/20/22 10:05 Range/Units White Blood Count 10.0 4.3-11.0 10^3/uL Red Blood Count 4.21 3.80-5.11 10^6/uL Hemoglobin 12.3 11.5-16.0 g/dL Hematocrit 38 35-52 % Mean Corpuscular Volume 90 80-99 fL Mean Corpuscular Hemoglobin 29 25-34 pg Mean Corpuscular Hemoglobin Concent 33 32-36 g/dL Red Cell Distribution Width 13.0 10.0-14.5 % Platelet Count 211 130-400 10^3/uL Mean Platelet Volume 9.2 9.0-12.2 fL Immature Granulocyte % (Auto) 0 % Neutrophils (%) (Auto) 81 H 42-75 % Lymphocytes (%) (Auto) 10 L 12-44 % Monocytes (%) (Auto) 6 0-12 % Eosinophils (%) (Auto) 3 0-10 % Basophils (%) (Auto) 1 0-10 % Neutrophils # (Auto) 8.1 H 1.8-7.8 10^3/uL Lymphocytes # (Auto) 1.0 1.0-4.0 10^3/uL Monocytes # (Auto) 0.6 0.0-1.0 10^3/uL Eosinophils # (Auto) 0.3 0.0-0.3 10^3/uL Basophils # (Auto) 0.1 0.0-0.1 10^3/uL Immature Granulocyte # (Auto) 0.0 0.0-0.1 10^3/uL Prothrombin Time 12.7 12.2-14.7 SEC INR Comment 0.9 0.8-1.4 Activated Partial Thromboplast Time 25 24-35 SEC Sodium Level 135 135-145 MMOL/L Potassium Level 4.4 3.6-5.0 MMOL/L Chloride Level 100 98-107 MMOL/L Carbon Dioxide Level 24 21-32 MMOL/L Anion Gap 11 5-14 MMOL/L Blood Urea Nitrogen 13 7-18 MG/DL Creatinine 1.31 H 0.60-1.30 MG/DL Estimat Glomerular Filtration Rate 40 BUN/Creatinine Ratio 10 Glucose Level 127 H 70-105 MG/DL Calcium Level 8.6 8.5-10.1 MG/DL Corrected Calcium 8.8 8.5-10.1 MG/DL Magnesium Level 1.9 1.6-2.4 MG/DL Total Bilirubin 0.4 0.1-1.0 MG/DL Aspartate Amino Transf (AST/SGOT) 46 H 5-34 U/L Alanine Aminotransferase (ALT/SGPT) 34 0-55 U/L Alkaline Phosphatase 135 40-136 U/L Troponin I < 0.30 <0.30 NG/ML Pro-B-Type Natriuretic Peptide 353.7 <450.0 PG/ML Total Protein 6.6 6.4-8.2 GM/DL Albumin 3.7 3.2-4.5 GM/DL Lipase 21 8-78 U/L Urine Color YELLOW Urine Clarity slt cloudy Urine pH 6.5 5-9 Urine Specific Hill[place] 1.020 1.016-1.022 Urine Protein NEGATIVE NEGATIVE Urine Glucose (UA) NEGATIVE NEGATIVE Urine Ketones NEGATIVE NEGATIVE Urine Nitrite NEGATIVE NEGATIVE Urine Bilirubin NEGATIVE NEGATIVE Urine Urobilinogen 0.2 < = 1.0 MG/DL Urine Leukocyte Esterase TRACE H NEGATIVE Urine RBC (Auto) NEGATIVE NEGATIVE Urine RBC NONE /HPF Urine WBC 0-2 /HPF Urine Squamous Epithelial Cells 2-5 /HPF Urine Crystals NONE /LPF Urine Bacteria NEGATIVE /HPF Urine Casts NONE /LPF Urine Mucus NEGATIVE /LPF Urine Culture Indicated NO My Orders Orders - ANDREW MARISCAL MD Cbc With Automated Diff (08/20/22 08:45) Magnesium (08/20/22 08:45) Ekg Tracing (08/20/22 08:45) Comprehensive Metabolic Panel (08/20/22 08:45) Protime With Inr (08/20/22 08:45) Partial Thromboplastin Time (08/20/22 08:45) O2 (08/20/22 08:45) Monitor-Rhythm Ecg Trace Only (08/20/22 08:45) Ed Iv/Invasive Line Start (08/20/22 08:45) Lipase (08/20/22 08:45) Troponin I Fs (08/20/22 08:45) Probnp Fs (08/20/22 08:45) Ct Head Wo (08/20/22 08:45) Ct Abdomen/Pelvis Wo (08/20/22 08:45) Ns Iv 1000 Ml (Sodium Chloride 0.9%) (08/20/22 08:45) Ua Culture If Indicated (08/20/22 08:50) Vital Signs/I&O 08/20/22 08/20/22 08:27 08:27 Temp 36.4 Pulse 95 Resp 16 B/P (MAP) 124/60 (81) Pulse Ox 92 O2 Delivery Room Air Room Air Capillary Refill : Progress Note #1: Progress Note Obtain basic labs to look for electrolyte imbalance, anemia, high white blood cell count, renal failure, liver failure, acute coronary syndrome. Recheck urine to look for signs of UTI. Repeat CT head to look for acute change from last Saturday. CT abd/pelvis to look for acute intra-abdominal pathology, spine fracture, pelvis fracture. Give NS 1 L IV fluid bolus to help with hydration as she was not able to provide a urine specimen since she urinated just prior to coming to the ED. Progress Note #2: Time: 09:34 Progress Note CBC, chemistry, coags were all stable without acute significant abnormality. She had a negative troponin and proBNP for her cardiac enzymes. Her electrocardiogram does not show any acute ST elevation or significant change from March 2021. CT scan of the head appears similar to August 13 without acute significant change. She has chronic microvascular changes and atrophy consistent with her age. CT scan of the abdomen pelvis does not show acute intra-abdominal pathology to account for her symptoms. She does have a ovarian cyst on the right but is not having complaints of pain or anything specific to this area. No vaginal bleeding. Constipation seen on CT but no obstruction. Will see if patient can urinate now to check against last week's specimen to see if she has residual infection since being switched to Bactrim DS on Saturday. Progress Note #3: Progress Note Obtained UA and it showed trace LE but negative bacteria and WBC. Will have patient complete the last 3 pills of Bactrim to finish out 5 day course of antibiotic. D/w Dr. Escalante and with patient's frequent falls and repeat ED visits she thought it would be helpful to try inpatient Rehab to help with strengthening and gait training and follow up with outpatient care through Dr. Almonte. D/w patient and spouse and they were agreeable to trying this as they are concerned with her frequent falls and weakness. They are reassured that she will be getting some therapy and were concerned about going home and being safe. Given phone number to call when arrived at [facility] so the rehab staff can come escort her to the Rehab Unit. ECG Initial ECG Impression Date: Aug 20, 2022 Initial ECG Impression Time: 08:56 Initial ECG Rate: 86 Initial ECG Comparisson: Unchanged (April 01, 2021) Comment I independently reviewed and interpreted the electrocardiogram. Patient has ventricular pacemaker with 86 bpm for her heart rate. OR interval 196 ms. There is no acute ST elevation. QT interval 414 ms with a QTc interval 457 ms. Overall appears similar to prior tracing from April 01, 2021. Diagnostic Imaging Diagonstic Imaging: CT Plain Films/CT/US/NM/MRI: head Comments [facility]. [place], [place] NAME: DEXTER AGUERO [facility] REC#: [id number] PT STATUS: REG ER : 1935 PHYSICIAN: ANDREW MARISCAL MD ADMIT DATE: 08/20/22/ER FS Signed Date of Exam:08/20/22 CT HEAD WO EXAMINATION: CT head without contrast. TECHNIQUE: Multiple contiguous axial images were obtained through the brain without the use of intravenous contrast. All CT scans use one or more of the following dose optimizing techniques: automated exposure control, MA and/or KvP adjustment based on patient size and exam type or iterative reconstruction. HISTORY: Frequent falls. Weakness. Difficulty walking. COMPARISON: 08/13/2022. FINDINGS: No large acute territorial ischemia, mass, or hemorrhage. No midline shift or mass effect. Decreased attenuation is seen in the periventricular and subcortical white matter. The ventricles and cortical sulci are prominent. The basilar cisterns are patent and unremarkable. The orbits are normal. Paranasal sinuses are normal. Mastoid air cells are clear. No soft tissue abnormality is seen. No osseus lesions or fractures are seen. IMPRESSION: 1. No large acute territorial ischemia, mass, or hemorrhage. 2. Chronic microvascular disease. 3. Generalized parenchymal volume loss. Dictated by: Dictated on workstation # [id number] Dict: 08/20/22918 Trans: 08/20/22925 [facility] [id number] Interpreted by: ZENY WRIGHT DO Electronically signed by: ZENY WRIGHT DO 08/20/22925 Reviewed: Reviewed by Me Diagonstic Imaging: CT Plain Films/CT/US/NM/MRI: abdomen, pelvis Comments [facility] [place] [place] NAME: DEXTER AGUERO [facility] REC#: [id number] PT STATUS: REG ER : 1935 PHYSICIAN: ANDREW MARISCAL MD ADMIT DATE: 08/20/22/ER FS Signed Date of Exam:08/20/22 CT ABDOMEN/PELVIS WO PROCEDURE: CT abdomen and pelvis without contrast. TECHNIQUE: Multiple contiguous axial images were obtained through the abdomen and pelvis without the use of intravenous contrast. Auto Exposure Controls were utilized during the CT exam to meet ALARA standards for radiation dose reduction. INDICATION: Back and pelvic pain. Symptoms started since a fall 2 days ago. COMPARISON: None. FINDINGS: The heart is unremarkable. The lung bases are clear. Hypoattenuating focus is seen in the left hepatic lobe measuring 1.7 cm. Additional similar-appearing lesions are seen in the inferior aspect of the right hepatic lobe. These are favored to represent benign cysts or hemangiomas. The gallbladder is surgically absent. The spleen, pancreas, adrenal glands, and kidneys have a normal noncontrast CT appearance. There is no pathologically enlarged mesenteric or retroperitoneal adenopathy. The bowel loops are nondilated. Moderate volume of stool seen throughout the colon. There is no free fluid or free air. Chronic height loss is seen in the superior endplate of T12. There is grade 1 anterolisthesis of L4 on L5. There is calcified aortic and iliac atherosclerotic plaque without aneurysm. Ureters and bladder are normal. Nonspecific cystic focus is seen in the pelvis right of midline measuring 4.2 x 3.9 cm. There is no free air, loculated collection, or adenopathy in the pelvis. IMPRESSION: 1. No acute abnormalities in the abdomen and pelvis. No acute fracture in the lumbar spine. No pelvic fracture. 2. Moderate volume of stool in the colon suggestive of constipation. 3. Cystic focus in the right adnexa, likely representing ovarian cyst. Pelvic ultrasound could be considered to further evaluate. Dictated by: Dictated on workstation # [id number] Dict: 08/20/22919 Trans: 08/20/22931 [facility] [id number] Interpreted by: ZENY WRIGHT DO Electronically signed by: ZENY WRIGHT DO 08/20/22931 Reviewed: Reviewed by Me Departure Impression Primary Impression: Frequent falls Additional Impression: General weakness Disposition: 01 HOME, SELF-CARE Condition: Stable Departure-Patient Inst. Decision time for Depature: 11:00 Referrals: PEDRO LUIS ALMONTE MD (PCP) Primary Care Physician Patient Instructions: Weakness ED, How to Use a Cane, Preventing Falls in Older Adults Add. Discharge Instructions: After you get some clothes and toiletries to take with you to Rehab unit in [place], drive to the hospital in [place] and go to the main lobby. From the lobby call [phone] and let them know you are there and the staff will come down to take you to a room on the Rehabilitation Unit. Follow up with Dr. Almonte next week after you are discharged from the Rehabilitation unit. Finish the few pills you have left of the Bactrim (T rimethoprim/Sulfamethoxazole) antibiotic to finish treating your UTI. All discharge instructions reviewed with patient and/or family. Voiced understanding. ANDREW MARISCAL MD Aug 20, 2022 08:59
[2022-08-20 09:19] LABS: INR 0.9 (0.8-1.4); PROTHROMBIN TIME PATIENT 12.7 SEC (12.2-14.7)
--- NOTE | 2022-08-20 09:21 | Diagnostic Imaging Report ---
EXAMINATION: CT head without contrast. TECHNIQUE: Multiple contiguous axial images were obtained through the brain without the use of intravenous contrast. All CT scans use one or more of the following dose optimizing techniques: automated exposure control, MA and/or KvP adjustment based on patient size and exam type or iterative reconstruction. HISTORY: Frequent falls. Weakness. Difficulty walking. COMPARISON: 08/13/2022. FINDINGS: No large acute territorial ischemia, mass, or hemorrhage. No midline shift or mass effect. Decreased attenuation is seen in the periventricular and subcortical white matter. The ventricles and cortical sulci are prominent. The basilar cisterns are patent and unremarkable. The orbits are normal. Paranasal sinuses are normal. Mastoid air cells are clear. No soft tissue abnormality is seen. No osseus lesions or fractures are seen. IMPRESSION: 1. No large acute territorial ischemia, mass, or hemorrhage. 2. Chronic microvascular disease. 3. Generalized parenchymal volume loss. Dictated by: Dictated on workstation # [id number]
--- NOTE | 2022-08-20 09:27 | Diagnostic Imaging Report ---
PROCEDURE: CT abdomen and pelvis without contrast. TECHNIQUE: Multiple contiguous axial images were obtained through the abdomen and pelvis without the use of intravenous contrast. Auto Exposure Controls were utilized during the CT exam to meet ALARA standards for radiation dose reduction. INDICATION: Back and pelvic pain. Symptoms started since a fall 2 days ago. COMPARISON: None. FINDINGS: The heart is unremarkable. The lung bases are clear. Hypoattenuating focus is seen in the left hepatic lobe measuring 1.7 cm. Additional similar-appearing lesions are seen in the inferior aspect of the right hepatic lobe. These are favored to represent benign cysts or hemangiomas. The gallbladder is surgically absent. The spleen, pancreas, adrenal glands, and kidneys have a normal noncontrast CT appearance. There is no pathologically enlarged mesenteric or retroperitoneal adenopathy. The bowel loops are nondilated. Moderate volume of stool seen throughout the colon. There is no free fluid or free air. Chronic height loss is seen in the superior endplate of T12. There is grade 1 anterolisthesis of L4 on L5. There is calcified aortic and iliac atherosclerotic plaque without aneurysm. Ureters and bladder are normal. Nonspecific cystic focus is seen in the pelvis right of midline measuring 4.2 x 3.9 cm. There is no free air, loculated collection, or adenopathy in the pelvis. IMPRESSION: 1. No acute abnormalities in the abdomen and pelvis. No acute fracture in the lumbar spine. No pelvic fracture. 2. Moderate volume of stool in the colon suggestive of constipation. 3. Cystic focus in the right adnexa, likely representing ovarian cyst. Pelvic ultrasound could be considered to further evaluate. Dictated by: Dictated on workstation # [id number]
[2022-08-20 09:29] LABS: BILIRUBIN,TOTAL 0.4 MG/DL (0.1-1.0); CALCIUM 8.6 MG/DL (8.5-10.1); CREATININE SERUM 1.31 MG/DL (0.60-1.30); MAGNESIUM 1.9 MG/DL (1.6-2.4); POTASSIUM 4.4 MMOL/L (3.6-5.0); TOTAL PROTEIN 6.6 GM/DL (6.4-8.2)
[2022-08-20 09:30] LABS: ALBUMIN 3.7 GM/DL (3.2-4.5)
[2022-08-20 10:14] LABS: BILIRUBIN,URINE NEGATIVE (NEGATIVE); COLOR,URINE YELLOW; GLUCOSE, URINE (UA) NEGATIVE (NEGATIVE); KETONES,URINE NEGATIVE (NEGATIVE); LEUKOCYTE ESTERASE ,URINE TRACE (NEGATIVE); NITRITE,URINE NEGATIVE (NEGATIVE); PH,URINE 6.5 (5-9); PROTEIN,URINE NEGATIVE (NEGATIVE)
[2022-08-20 10:25] LABS: BACTERIA,URINE NEGATIVE /HPF; WBC,URINE 0-2 /HPF
[2022-08-20 11:12] VITALS: BP 121/64
[2022-08-20] MEDS ORDERED: AMIT50TA3 PO (17:50)
[2022-08-20] MEDS ORDERED: SMZ/TMP PO (17:53)
[2022-08-20] MEDS ORDERED: DONE10TA41 PO (17:55)
[2022-08-20] MEDS ORDERED: ZOLP5TAB7 PO (18:12)
[2022-08-20] MEDS ORDERED: MEMA10TA57 PO (18:22)
[2022-08-20] MEDS ORDERED: CLOP75TA28 PO (18:22)
[2022-08-20] MEDS ORDERED: CITA20TA9 PO (18:22)
[2022-08-21] MEDS ORDERED: CHOL200052 PO (10:24)
[2022-08-21] MEDS ORDERED: IBUP-2185 PO (10:24)
[2022-08-21] MEDS ORDERED: CYAN500T8 PO (10:24)
[2022-08-21] MEDS ORDERED: POLY17PO6 PO (10:24)
[2022-08-21] MEDS ORDERED: SULF-221 PO (10:24)
[2022-08-21] MEDS ORDERED: FLAX10004 PO (10:24)
[2022-08-21] MEDS ORDERED: ZOLP5TAB7 PO (10:24)
[2022-08-21] MEDS ORDERED: RED600TA PO (10:24)
[2022-08-21] MEDS ORDERED: FISH1CAP15 PO (10:24)
[2022-08-21] MEDS ORDERED: POLY30DR6 OU (10:24)
[2022-08-24] MEDS ORDERED: ZOLP5TAB7 PO (16:18)
[2022-08-24] MEDS ORDERED: MIDO10TA PO (16:18)
== END 2022-08-20 11:12 | disposition home or self-care (01) ==
LOC: EDUNIT# 08:24 → ER FS 08:25
DX: R53.1 Weakness (principal); N39.0 Urinary tract infection, site not specified; R29.6 Repeated falls
CPT/HCPCS: 36415; 70450; 74176; 80053; 81000; 83690; 83735; 83880; 84484; 85025; 85610; 85730; 93005; 93041; 96360

== ENCOUNTER 2022-08-20 10:58 | Inpatient (IN) | payer MEDICARE, OTHER ==
[~2022-08-20] VITALS: Ht 157.5 cm; Wt 61.8 kg
--- NOTE | 2022-08-20 11:02 | PM&R Post Admission Assessment ---
PM&R HP Date of Visit: Aug 20, 2022 Time of Visit: 18:00 History of Present Illness Chief complaint: Multiple falls with debility HPI: This is an 86-year-old female patient of Dr. Montiel who presents as a direct admission following ER visit at [facility] second time in 3 days due to multiple falls at home high risk for fracture. Patient was placed on Bactrim after changing antibiotic from Macrobid and her work-up in the ER was normal today. Patient really could not get out of her chair today per her . Overall severe weakness and multiple falls places her at risk for decompensation. Currently she is without pain and she wants to go home soon. Past Ansfkoe-Qujaey-Ukpkro Hx Past Med/Social Hx: Reviewed Nursing Past Med/Soc Hx, Reviewed and Corrections made Patient Social History Marrital Status: Alcohol Use: Denies Use Smoking Status: Never a Smoker 2nd Hand Smoke Exposure: No Recent Hopitalizations: No Seasonal Allergies Seasonal Allergies: No Past Medical History Surgeries: Gallbladder, Pacemaker Neurological: Dementia PM&R Allergy/Meds/Data Review Allergies Coded Allergies: No Known Drug Allergies (Unverified , 04/01/21) Home Medications Scheduled Amitriptyline HCl (Amitriptyline HCl), 150 MG PO HS, (Reported) Clopidogrel Bisulfate (Clopidogrel), 75 MG PO BID, (Reported) Donepezil HCl (Donepezil HCl), 10 MG PO BID, (Reported) Memantine HCl (Memantine HCl), 10 MG PO BID, (Reported) Zolpidem Tartrate (Zolpidem Tartrate), 5 MG PO HS [Smz/Tmp], MG PO BID, (Reported) Miscellaneous Medications Citalopram Hydrobromide (Citalopram HBr), 20 MG PO, (Reported) Discontinued Medications Cephalexin (Cephalexin), 500 MG PO TID Nitrofurantoin Monohyd/M-Cryst (Macrobid 100 mg Capsule), 1 TAB PO BID Current Medications Current Medications Reviewed Review of Systems Constitutional: see HPI, dizziness, malaise, weakness EENTM: no symptoms reported Respiratory: no symptoms reported Cardiovascular: no symptoms reported Gastrointestinal: no symptoms reported Genitourinary: no symptoms reported Musculoskeletal: back pain, joint pain Skin: no symptoms reported Psychiatric/Neurological: Anxiety, Depressed, Other (Confusion) All Other Systems Reviewed Negative Unless Noted: Yes Physical Exam Physical Exam Vital Signs Capillary Refill : Height, Weight, BMI Height: '" Weight: lbs. oz. kg; 25.00 BMI Method: General Appearance: No Apparent Distress, WD/WN, Chronically ill Eyes: Bilateral Eye Normal Inspection, Bilateral Eye PERRL HEENT: PERRL/EOMI, Normal ENT Inspection, Pharynx Normal Neck: Full Range of Motion, Normal Inspection, Non Tender, Supple, Carotid Bruit Respiratory: Chest Non Tender, Lungs Clear, Normal Breath Sounds, No Accessory Muscle Use, No Respiratory Distress Cardiovascular: Regular Rate, Rhythm, No Edema, No Gallop, No JVD, No Murmur, Normal Peripheral Pulses Gastrointestinal: Normal Bowel Sounds, No Organomegaly, No Pulsatile Mass, Non Tender, Soft Back: Normal Inspection, No CVA Tenderness, No Vertebral Tenderness Extremity: Normal Capillary Refill, Normal Inspection, Normal Range of Motion, Non Tender, No Calf Tenderness, No Pedal Edema Neurologic/Psychiatric: Alert, Oriented x3 (Poor recall), No Motor/Sensory Deficits, sausage stringer II-XII Norm as Tested, Abnormal Gait, Depressed Affect, Motor Weakness (Generalized in legs) Skin: Normal Color, Warm/Dry Lymphatic: No Adenopathy PM&R Medical Assessment & Plan REHAB/MEDICAL ASSESSMENT AND PLAN: REHAB IMPAIRMENT GROUP: Falls with debility ETIOLOGIC DIAGNOSIS: Falls with debility The comorbidities that impact the patients function and/or functional outcome by: Advanced age, dementia, multiple falls, current UTI REHAB PLAN: The patient is being admitted to our comprehensive inpatient rehabilitation facility and can tolerate the intensity of service consisting of at least: 180 minutes of therapy a day, 5 out of 7 days a week Rehab treatment will consist of: PT and OT will focus on regaining function with the use of assistive devices in order to prevent falls and increase indepen dence in ADLs in order to return back home with spouse The patient/family has a good understanding of our discharge process and will benefit from an interdisciplinary inpatient rehabilitation program. The patient has potential to make improvement and is in need of at least two of the following multidisciplinary therapies including but not limited to physical, occupational, speech, and prosthetics and orthotics. Additionally the patient will need services from respiratory, nutritional services, wound care, psychology, etc. (Customize this to each patient). Given the patients complex condition and risk of further medical complications, rehabilitation services cannot be safely or effectively provided at a lower level of care such as a fpc facility. BARRIERS TO DISCHARGE: Dementia ESTIMATED LOS: 7 days DISPOSITION: Home RELEVANT CHANGES SINCE PREADMISSION SCREENING: I have compared the patients medical and functional status at the time of the preadmission screening and there are: No changes PROGNOSIS: Fair REHABILITATION GOALS: 1. PT and OT will focus on regaining function with the use of assistive devices in order to prevent falls and increase independence in ADLs in order to return back home with spouse All the above goals were reviewed with the patient and he/she is in agreement. By signing this document, I acknowledge that I have personally performed a full physical examination on this patient within 24 hours of admission to this inpatient rehabilitation facility and have determined the patient to be able to tolerate the above course of treatment at an intensive level for a reasonable period of time. I will be completing a detailed individualized Plan of Care for this patient by day #4 of the patients stay based upon the Preadmission Screen, the Post-Admission Evaluation, and the therapy evaluations. Admission Dx/Comorbidities: (1) Frequent falls Status: Acute ICD Codes: R29.6 - Repeated falls (2) General weakness Status: Acute ICD Codes: R53.1 - Weakness (3) UTI (urinary tract infection) Status: Acute ICD Codes: N39.0 - Urinary tract infection, site not specified (4) Closed head injury Status: Acute ICD Codes: S09.90XA - Unspecified injury of head, initial encounter Assessment/Plan Assessment and Plan Assess & Plan/Chief Complaint Assessment: Falls and debility Recent UTI Dementia TIA? Plan: Home meds Supportive care Monitor closely Aggressive PT and OT BERTO VIDES DO Aug 20, 2022 11:02
[2022-08-20 16:00] VITALS: BP 146/71
[2022-08-20] MEDS ORDERED: FLU QUAD HIGH DOSE 240 MCG/0.7 ML 2022-23 (FLUZONE) IM ONE (17:45)
[2022-08-20] MEDS ORDERED: AMIT50TA3 PO (17:50)
[2022-08-20] MEDS ORDERED: SMZ/TMP PO (17:53)
[2022-08-20] MEDS ORDERED: DONE10TA41 PO (17:55)
[2022-08-20] MEDS ORDERED: ZOLP5TAB7 PO (18:12)
[2022-08-20] MEDS ORDERED: CITA20TA9 PO (18:22)
[2022-08-20] MEDS ORDERED: MEMA10TA57 PO (18:22)
[2022-08-20] MEDS ORDERED: CLOP75TA28 PO (18:22)
[2022-08-20] MEDS ORDERED: DOCUSATE SODIUM 100 MG (COLACE) CAP PO PRN (18:30)
[2022-08-20] MEDS ORDERED: diphenhydrAMINE 25 MG TAB (BENADRYL) PO PRN (18:30)
[2022-08-20] MEDS ORDERED: MELATONIN 3 MG TABLET PO PRN (18:30)
[2022-08-20] MEDS ORDERED: ENOXAPARIN 40 MG/0.4 ML (LOVENOX) SYR SC SCH (18:30)
[2022-08-20] MEDS ORDERED: ACETAMINOPHEN 325 MG TABLET PO PRN (18:30)
[2022-08-20] MEDS ORDERED: LOPERAMIDE 2 MG (IMODIUM) TABLET PO PRN (18:30)
[2022-08-20] MEDS ORDERED: FLEET ENEMA ADULT 1 EA BTL PR PRN (18:30)
[2022-08-20] MEDS ORDERED: ONDANSETRON 4 MG (ZOFRAN) ORAL DISSOLVE TAB PO PRN (18:30)
[2022-08-20] MEDS ORDERED: ALPRAZolam 0.25 MG (XANAX) TAB PO PRN (18:30)
[2022-08-20] MEDS ORDERED: TRIM/SULFAMETH 160/800 (SEPTRA DS) TAB PO SCH (18:30)
[2022-08-20] MEDS ORDERED: BISACODYL 10 MG SUPP (DULCOLAX) PR PRN (18:30)
[2022-08-20 19:37] VITALS: BP 122/73
[2022-08-20] MEDS ORDERED: CLOPIDOGREL 75 MG (PLAVIX) TABLET PO SCH (21:00)
[2022-08-20] MEDS ORDERED: AMITRIPTYLINE HCL 150 MG PO SCH (21:00)
[2022-08-20] MEDS: ENOXAPARIN INJECTION 30 MG/0.3 ML SYR SC SCH (21:10)
[2022-08-20] MEDS: TRIM/SULFAMETH 160/800 (SEPTRA DS) TAB PO SCH (21:10)
[2022-08-20] MEDS: DONEPEZIL 10 MG (ARICEPT) TAB PO SCH (21:10)
[2022-08-20] MEDS: AMITRIPTYLINE 150 MG (ELAVIL) TABLET PO SCH (21:10)
[2022-08-20] MEDS: MEMANTINE 10 MG (NAMENDA) TABLET PO SCH (21:10)
[2022-08-20] MEDS: SENNA W/DOCUSATE (SENOKOT S) TABLET PO SCH (21:11)
[2022-08-20] MEDS: polyethylene glycoL POWDER 17 GM (MIRALAX) PACK PO SCH (21:11)
[2022-08-20] MEDS: DOCUSATE SODIUM 100 MG (COLACE) CAP PO SCH (21:11)
[2022-08-20] MEDS: ZOLPIDEM 5 MG (AMBIEN) TAB PO SCH (21:57)
[2022-08-21 05:44] LABS: BASOPHILS # (AUTO) 0.1 10^3/uL (0.0-0.1); BASOPHILS % (AUTO) 1 % (0-10); EOSINOPHILS # (AUTO) 0.3 10^3/uL (0.0-0.3); EOSINOPHILS % (AUTO) 5 % (0-10); HEMATOCRIT 36 % (35-52); HEMOGLOBIN 11.3 g/dL (11.5-16.0); LYMPHOCYTES # (AUTO) 1.3 10^3/uL (1.0-4.0); LYMPHOCYTES % (AUTO) 19 % (12-44); MEAN CORPUSCULAR HEMOGLOBIN 30 pg (25-34); MEAN CORPUSCULAR HGB CONC 32 g/dL (32-36); MEAN CORPUSCULAR VOLUME 93 fL (80-99); MEAN PLATELET VOLUME 9.2 fL (9.0-12.2); MONOCYTES # (AUTO) 0.5 10^3/uL (0.0-1.0); MONOCYTES % (AUTO) 7 % (0-12); NEUTROPHILS # (AUTO) 4.5 10^3/uL (1.8-7.8); NEUTROPHILS % (AUTO) 68 % (42-75); PLATELET COUNT 191 10^3/uL (130-400); WHITE BLOOD COUNT 6.6 10^3/uL (4.3-11.0)
--- NOTE | 2022-08-21 05:56 | PM&R Progress Note ---
Subjective HPI/CC On Admission Date Seen by Provider: Aug 21, 2022 Time Seen by Provider: 09:00 Subjective/Events-last exam 08/21/2022: Pt is doing pretty well Orthostatic hypotension noted Major balance deficits and is high risk for falls even using AD Plavix and Aricept ordered BID so will need to correct that Review of Systems General: Fatigue, Malaise Neurological: Confusion Objective Exam Vital Signs Vital Signs Date Time Temp Pulse Resp B/P (MAP) Pulse Ox O2 Delivery O2 Flow Rate FiO2 08/21/22 21:16 Room Air 08/21/22 19:42 37.1 78 16 129/72 (91) 90 Capillary Refill : General Appearance: No Apparent Distress, WD/WN, Chronically ill HEENT: PERRL/EOMI, Normal ENT Inspection, Pharynx Normal Neck: Full Range of Motion, Normal Inspection, Non Tender, Supple, Carotid Bruit Respiratory: Chest Non Tender, Lungs Clear, Normal Breath Sounds, No Accessory Muscle Use, No Respiratory Distress Cardiovascular: Regular Rate, Rhythm, No Edema, No Gallop, No JVD, No Murmur, Normal Peripheral Pulses Gastrointestinal: Normal Bowel Sounds, No Organomegaly, No Pulsatile Mass, Non Tender, Soft Back: Normal Inspection, No CVA Tenderness, No Vertebral Tenderness Extremity: Normal Capillary Refill, Normal Inspection, Normal Range of Motion, Non Tender, No Calf Tenderness, No Pedal Edema Neurologic/Psychiatric: Alert, Oriented x3 (Poor recall), No Motor/Sensory Deficits, manager park II-XII Norm as Tested, Abnormal Gait, Depressed Affect, Motor Weakness (Generalized in legs) Skin: Normal Color, Warm/Dry Lymphatic: No Adenopathy Results/Procedures Lab Patient resulted labs reviewed. FIM Transfers Therapy Code Descriptions/Definitions Functional [place] Measure: 0=Not Assessed/NA 4=Minimal Assistance 1=Total Assistance 5=Supervision or Setup 2=Maximal Assistance 6=Modified [place] 3=Moderate Assistance 7=Complete IndependenceSCALE: Activities may be completed with or without assistive devices. 6-Ujbommeqel-usjpkdx completes the activity by him/herself with no assistance from a helper. 5-Set-up or Clean-up Assistance-helper sets up or cleans up; patient completes activity. [place] assists only prior to or following the activity. 4-Supervision or Touching Assistance-helper provides verbal cues and/or touching/steadying and/or contact guard assistance as patient completes activity. Assistance may be provided throughout the activity or intermittently. 3-Partial/Moderate Assistance-helper does LESS THAN HALF the effort. [place] lifts, holds or supports trunk or limbs, but provides less than half the effort. 2-Substantial/Maximal Assistance-helper does MORE THAN HALF the effort. [place] lifts or holds trunk or limbs and provides more than half the effort. 5-Dohloxrjj-gkhvti does ALL the effort. Patient does none of the effort to complete the activity. Or, the assistance of 2 or more helpers is required for the patient to complete the activity. If activity was not attempted, code reason: 7-Patient Refused. 9-Not Applicable-not attempted and the patient did not perform the activity before the current illness, exacerbation or injury. 10-Not Attempted due to Environmental Limitations-(lack of equipment, weather restraints, etc.). 88-Not Attempted due to Medical Conditions or Safety Concerns. Assessment/Plan Assessment and Plan Assess & Plan/Chief Complaint Assessment: Falls and debility Recent UTI Dementia TIA? Plan: Home [facility] Supportive care Monitor closely Aggressive PT and OT 08/21/2022: Supportive care continues Focus on fall prevention (1) Frequent falls Status: Acute (2) General weakness Status: Acute (3) UTI (urinary tract infection) Status: Acute (4) Closed head injury Status: Acute BERTO VIDES DO Aug 21, 2022 05:56
[2022-08-21 06:06] LABS: ALBUMIN 3.3 GM/DL (3.2-4.5); BILIRUBIN,TOTAL 0.4 MG/DL (0.1-1.0); CALCIUM 8.4 MG/DL (8.5-10.1); CREATININE SERUM 1.07 MG/DL (0.60-1.30); POTASSIUM 4.1 MMOL/L (3.6-5.0); TOTAL PROTEIN 5.9 GM/DL (6.4-8.2)
[2022-08-21 07:24] VITALS: BP 130/73
[2022-08-21] MEDS: DOCUSATE SODIUM 100 MG (COLACE) CAP PO SCH ×3 (08:21→20:48)
[2022-08-21] MEDS: polyethylene glycoL POWDER 17 GM (MIRALAX) PACK PO SCH ×2 (08:21→20:32)
[2022-08-21] MEDS: SENNA W/DOCUSATE (SENOKOT S) TABLET PO SCH ×3 (08:21→20:48)
[2022-08-21] MEDS: TRIM/SULFAMETH 160/800 (SEPTRA DS) TAB PO SCH ×2 (08:22→18:01)
--- NOTE | 2022-08-21 08:22 | Occupational Therapy Eval ---
OT Evaluation-General/PLF Medical Diagnosis Admission Date Aug 20, 2022 at 16:53 Medical Diagnosis: debility Onset Date: Aug 20, 2022 Therapy Diagnosis Therapy Diagnosis: Decreased ability w/ ADLs Precautions Precautions/Isolations: Fall Prevention, Standard Precautions Weight Bear Status Weight Bearing Restriction: Weight Bearing/Tolerated Referral Physician: Jes Referral Reason: Evaluation/Treatment Medical History Additional Medical History Gallbladder, Pacemaker, Dementia Current History Pt direct admit from [facility] ED due to multiple falls in past few days. Social History Home: Single Level Current Living Status: Spouse Entry Into Home: Stairs Without Railing Steps Into Home: 2 ADL-Prior Level of Function SCALE: Activities may be completed with or without assistive devices. 3-Qvqbadoese-beumuau completes the activity by him/herself with no assistance from a helper. 5-Set-up or Clean-up Assistance-helper sets up or cleans up; patient completes activity. [place] assists only prior to or following the activity. 4-Supervision or Touching Assistance-helper provides verbal cues and/or touching/steadying and/or contact guard assistance as patient completes activity. Assistance may be provided throughout the activity or intermittently. 3-Partial/Moderate Assistance-helper does LESS THAN HALF the effort. [place] lifts, holds or supports trunk or limbs, but provides less than half the effort. 2-Substantial/Maximal Assistance-helper does MORE THAN HALF the effort. [place] lifts or holds trunk or limbs and provides more than half the effort. 3-Cpdtpkspx-wuwelv does ALL the effort. Patient does none of the effort to complete the activity. Or, the assistance of 2 or more helpers is required for the patient to complete the activity. If activity was not attempted, code reason: 7-Patient Refused. 9-Not Applicable-not attempted and the patient did not perform the activity before the current illness, exacerbation or injury. 10-Not Attempted due to Environmental Limitations-(lack of equipment, weather restraints, etc.). 88-Not Attempted due to Medical Conditions or Safety Concerns. ADL PLOF Comments Pt reports IND with functional mobility using SPC as needed. She was independent with ADLS, has a walk in shower with SC. Her spouse completes all IADLs. Self Care: Independent Functional Cognition: Needed Some Help DME/Equipment: Bath Chair, Shower Drive Self: No OT Current Status Subjective Pt is agreeable OT treatment and desire to return home. Pt states she doesn't understand why she is here and feels like she is able to return home. Mental Status/Objective Patient Orientation: Person, Place, Time, Situation Current Glasses/Contacts: Yes Hearing Aids: No Dentures/Partials: No Hand Dominance: Right Upper Extremity ROM BUE ROM approximately 140 WFLs Upper Extremity Coordination WFLS Upper Extremity Sensation Per reports some tingling sensation on UEs Upper Extremity Strength +3/5 BUE ADL-Treatment Eating (QC): 6 Oral Hygiene (QC): 4 (SBA at sink) Shower/Bathe Self (QC): 4 (SBA ) Upper Body Dressing (QC): 3 (Min A with buttons) Lower Body Dressing (QC): 4 (SBA) On/Off Footwear (QC): 4 (SBA donning compression socks and slip on shoes.) Toileting Hygiene (QC): 4 (SBA) Other Treatments Pt used SPC around room to gather clothes, complete dressing, showering, toileting and oral care. Pt then performed functional mobility to therapy gym using SPC, SBA. OT tx focused on increasing BUE strength and activity tolerance. Pt completed arm bike x10 mins, 20 watt resistance, 1 rest beak. She then placed x16 pegs into foam pegboard following colored pattern, no errors. Pt then placed beads onto string using BUEs in order to increase fine motor coordination, pt able to place x10 beads onto string. Post tx, pt left in gym, all needs met, PT present for continued tx. Education OT Patient Education: Correct positioning, Energy conservation, Modified ADL techniques, Progress toward Goal/Update tx plan, Purpose of tx/functional activities, Rehab process Teaching Recipient: Patient Teaching Methods: Discussion Response to Teaching: Verbalize Understanding BIMS CAM BIMS Expression of Ideas and Wants: Without Difficulty Understanding Verbal Content: Understands Brief Interview/Mental Status: Yes IRF FRANCO BIMS: IRF FRANCO BIMS Response (Comments) Value Repitition of Three Words Three 3 Recalls Socks Yes, No Cue Required 2 Recalls Blue Yes, No Cue Required 2 Recalls Bed Yes, No Cue Required 2 Year Correct 3 Month Accurate Within 5 Days 2 Day Correct 1 Total [address] Mental [address] No CAM Mental Status Change/Baseline: 0 Inattention: 0 Disorganized thinkin Altered level of consciousness: 0 OT Short Term Goals Short Term Goals Time Frame: Aug 31, 2022 Upper body dressin Lower body dressin Putting on/taking off footwear: 5 OT Material Control Specialist Goals Shelter Goals Time Frame: Sep 07, 2022 Acute change in mental status: 0 Inattention: 0 Disorganized thinkin Altered level of consciousness: 0 Eating (QC): 6 Oral Hygiene (QC): 6 Toileting Hygiene (QC): 6 Shower/Bathe Self (QC): 6 Upper Body Dressing (QC): 6 Lower Body Dressing (QC): 6 On/Off Footwear (QC): 6 Additional Goals: 1-Demonstrate ADL Tasks, 2-Verbalize Understanding, 3- ImproveStrength/Jossie 1=Demonstrate adherence to instructed precautions during ADL tasks. 2=Patient will verbalize/demonstrate understanding of assistive devices/modifica tions for ADL. 3=Patient will improve strength/tolerance for activity to enable patient to perform ADL's. OT Education/Plan Problem List/Assessment Assessment: Decreased Activ Tolerance, Decreased UE Strength, Impaired Coordination, Impaired Funct Balance, Impaired I ADL's, Impaired Self-Care Skills Discharge Recommendations Plan/Recommendations: Continue POC Treatment Plan/Plan of Care Patient would benefit from OT for education, treatment and training to promote independence in ADL's, mobility, safety and/or upper extremity function for ADL's. Plan of Care: ADL Retraining, Functional Mobility, Group Exercise/Act as Ind, UE Funct Exercise/Act Treatment Duration: Sep 07, 2022 Frequency: At least 5 of 7 days/Wk (IRF) Estimated Hrs Per Day: 1.5 hours per day Agreement: Yes Rehab Potential: Good Time/GCodes Start Time: 07:30 Stop Time: 08:45 Total Time Billed (hr/min): 75 Billed Treatment Time 1, EVL (10'), ADL 2 (30'), EX (10'), FA (25') KARLA CORBETT OT Aug 21, 2022 08:22
[2022-08-21] MEDS: CLOPIDOGREL 75 MG (PLAVIX) TABLET PO SCH (08:23)
[2022-08-21] MEDS: DONEPEZIL 10 MG (ARICEPT) TAB PO SCH (08:24)
[2022-08-21] MEDS: MEMANTINE 10 MG (NAMENDA) TABLET PO SCH ×2 (08:25→20:46)
--- NOTE | 2022-08-21 09:27 | Physical Therapy Evaluation ---
PT Evaluation-General Medical Diagnosis Admission Date Aug 20, 2022 at 16:53 Medical Diagnosis: Debility Onset Date: Aug 20, 2022 Therapy Diagnosis Therapy Diagnosis: Generalized Weakness/ Imbalance Precautions Precautions/Isolations: Fall Prevention, Standard Precautions Weight Bear Status Right Lower Extremity: Right Full Weight Bearing Left Lower Extremity: Left Full Weight Bearing Referral Physician: Jaja Escalante DO Reason for Referral: Evaluation/Treatment Medical History Additional Medical History Unknown past medical history Current History frequent falls and recent UTI Reviewed History: Yes Social History Home: Single Level Current Living Status: Spouse Entry Into Home: Stairs With Railing PT Steps Into Home: 3 from garage into the house Prior Prior Level of Function SCALE: Activities may be completed with or without assistive devices. 2-Ekgwiprqbb-jlhdyoq completes the activity by him/herself with no assistance from a helper. 5-Set-up or Clean-up Assistance-helper sets up or cleans up; patient completes activity. [place] assists only prior to or following the activity. 4-Supervision or Touching Assistance-helper provides verbal cues and/or t ouching/steadying and/or contact guard assistance as patient completes activity. Assistance may be provided throughout the activity or intermittently. 3-Partial/Moderate Assistance-helper does LESS THAN HALF the effort. [place] lifts, holds or supports trunk or limbs, but provides less than half the effort. 2-Substantial/Maximal Assistance-helper does MORE THAN HALF the effort. [place] lifts or holds trunk or limbs and provides more than half the effort. 6-Dwowwatqx-ibtfni does ALL the effort. Patient does none of the effort to complete the activity. Or, the assistance of 2 or more helpers is required for the patient to complete the activity. If activity was not attempted, code reason: 7-Patient Refused. 9-Not Applicable-not attempted and the patient did not perform the activity before the current illness, exacerbation or injury. 10-Not Attempted due to Environmental Limitations-(lack of equipment, weather restraints, etc.). 88-Not Attempted due to Medical Conditions or Safety Concerns. Bed Mobility: 6 Transfers (B,C,W/C): 6 Gait: 6 Stairs: 6 Indoor Mobility (Ambulation): Independent Stairs: Independent Prior Devices Use: Other-see list below Prior Device Use: Single-Point Cane PT Evaluation-Current Subjective Patient in chair pre-tx, reports no pain other than soreness in BLE after OT session, agrees to PT. Pain Section J - Health Conditions 1. Rarely or not at all 2. Occasionally 3. Frequently 4. Almost constantly 8. Unable to answer Pain Effect on Sleep: 1 Pain Interference with Therapy: 1 Pain Interference w/Day-to-Day: 1 Pt/Family Goals Get back home to spouse and return to prior independent functions Objective Patient Orientation: Person, Place, Situation ROM/Strength ROM Lower Extremities WFL Strength Lower Extremities LLE (hip flexion 3+, knee extension 4-/5, knee flexion 4-/5, DF 4/5), RLE (hip flexion 3+, knee extension 4-/5, knee flexion 4-/5, DF 4/5) Neuromuscular (Tone, Coordination, Reflexes) Coordination slightly diminished most prominent while turning during ambulation using single point cane or FFW. Sensory Hearing: Functional Hand Dominance: Right Sensation Right Lower Extremit: Intact Sensation Left Lower Extremity: Intact Transfers Roll Left & Right (QC): 6 Sit to Lying (QC): 6 Lying to Sitting/Side of Bed(Q: 4 (CGA) Sit to Stand (QC): 4 (CGA) Chair/Rua-kh-Uckcx Xfer(QC): 4 (CGA) Toilet Transfer (QC): 4 (CGA) Car Transfer (QC): 4 (CGA) CGA Gait Does the Patient Walk?: Yes Mode of Locomotion: Walk Anticipated Mode of Locomotion: Walk Walk 10 feet (QC): 4 Walk 50 ft with 2 Turns(QC): 4 Walk 150 ft (QC): 88 Walking 10ft/uneven surface-QC: 4 Distance: 100'x3 Gait Assistive Device: FWW Comments/Gait Description CGA at all times when walking, random bouts of unsteadiness. Has been using single point cane at home. Wheelchair Training Does the Pt Use a Wheelchair?: No Wheel 50 ft with 2 turns (QC): 9 Wheel 150 ft (QC): 9 Stairs #of Steps: 4 1 Step (curb) (QC): 4 4 Steps (QC): 4 12 Steps (QC): 88 Walking Assistive Device: Cane CGA, more unsteady coming down than going up. Used a cane on one side and handrail on the other. Balance Sitting Static: Normal Sitting Dynamic: Normal Standing Static: Poor Standing Dynamic: Poor Picking up an Object (QC): 4 Special Test Comments CGA, with hospital attendant Treatment Tin[place] 16/ HIGH FALL RISK, seated hip abd/add with ball and manual resist, AP, LAQ (20 reps of each) Assessment/Needs Patient in recliner post tx with nurse call, phone, tray, all needs met. Patient instructed to call nurse if she needs to get up due to high fall risk. Patient has impaired mobility, strength, endurance and balance. Patient has poor motor control and positional awareness. Rehab Potential: Fair PT Short Term Goals Short Term Goals Time Frame: Aug 28, 2022 Sit to lyin (SBA) Lying to sitting on side of be: 4 (SBA) Sit to stand: 4 (SBA) Chair/eiy-ta-iamtw transfer: 4 (SBA) Toilet transfer: 4 (SBA) Car transfer: 4 (SBA) Walk 10 feet: 4 (SBA) Walk 50 feet with two turns: 4 (SBA) Walk 150 feet: 4 (SBA) Walking 10ft on uneven surface: 4 (SBA) 1 step (curb): 4 (SBA) 4 steps: 4 (SBA) Picking up objects: 4 (SBA, using hospital attendant) Does pt use a wc or scooter: No Type: N/A PT [facility] Goals Revenue Audit Clerk Goals PT [facility] Goals Time Frame: Sep 11, 2022 Roll Left to Right (QC): 6 Sit to Lying (QC): 6 Lying-Sitting on Side/Bed(QC): 6 Sit to Stand (QC): 6 Chair/Wxw-in-Qbjlk Xfer(QC): 6 Toilet/Commode Transfer (QC): 6 Car Transfer (QC): 6 Does the Patient Walk: Yes Walk 10 feet (QC): 6 Walk 10ft-Uneven Surface(QC): 6 Walk 50ft with 2 Turns (QC): 6 Walk 150 ft (QC): 6 Does the Pt use WC or Scooter?: No Wheel 50 feet with 2 turns (QC: 9 Type: N/A Wheel 150 feet: 9 Type: N/A 1 Step (curb) (QC): 6 4 Steps (QC): 6 12 Steps (QC): 88 Picking up an Object (QC): 6 PT Plan Problem List Problem List: Activity Tolerance, Functional Strength, Safety, Balance, Gait, Transfer, Bed Mobility, ROM Treatment/Plan Treatment Plan: Continue Plan of Care Treatment Plan: Bed Mobility, Education, Functional Activity Jossie, Functional Strength, Group Therapy, Gait, Safety, Therapeutic Exercise, Transfers Treatment Duration: Sep 04, 2022 Frequency: At least 5 of 7 days/Wk (IRF) Estimated Hrs Per Day: 1.5 hours per day Patient and/or Family Agrees t: Yes Safety Risks/Education Safety Risk Comments: High Fall Risk Patient Education: Gait Training, Transfer Techniques, Steps, Correct Positioning, Safety Issues Teaching Recipient: Patient Teaching Methods: Demonstration, Discussion Response to Teaching: Reinforcement Needed Discharge Recommendations Plan Patient will perform bed mobility and transfer training, balance and endurance training, gait training and stair training to be more safe and independent at home. Therapy Discharge Recommendati: Scheduled Assistance, Home & Family, Post Acute PT Time Time In: 0845 Time Out: 1000 Total Billed Treatment Time: 75 Total Billed Treatment 1 visit EVM 15min FA 30min EX 30min JOSE DAVID CASTANON PT Aug 21, 2022 09:27
[2022-08-21] MEDS ORDERED: IBUP-2185 PO (10:24)
[2022-08-21] MEDS ORDERED: FLAX10004 PO (10:24)
[2022-08-21] MEDS ORDERED: POLY30DR6 OU (10:24)
[2022-08-21] MEDS ORDERED: POLY17PO6 PO (10:24)
[2022-08-21] MEDS ORDERED: RED600TA PO (10:24)
[2022-08-21] MEDS ORDERED: CHOL200052 PO (10:24)
[2022-08-21] MEDS ORDERED: FISH1CAP15 PO (10:24)
[2022-08-21] MEDS ORDERED: ZOLP5TAB7 PO (10:24)
[2022-08-21] MEDS ORDERED: CYAN500T8 PO (10:24)
[2022-08-21] MEDS ORDERED: SULF-221 PO (10:24)
--- NOTE | 2022-08-21 11:53 | ST Cognitive Linguistic Eval ---
Speech Evaluation-General Medical Diagnosis Debility Onset Date: Aug 20, 2022 Therapy Diagnosis Therapy Diagnosis: Intact Cognition (Baseline) Precautions Precautions: Fall Precautions/Isolations: Fall Prevention, Standard Precautions Referral Referring Physician: Dr. Escalante Reason for Referral: Evaluation/Treatment Medical History Current History The patient is an 86 year-old female with a past medical history of a pacemaker and dementia, who is a direct admit from [facility] following multiple falls. Reviewed History: Yes Social History Current Living Status: Spouse Speech PLF-Current Status Prior Level of Function The patient stated, "I have been taking Alzheimer's medication since August 2016. I read 46 books to my last year and color frequently. 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 Subjective The patient was seated upright in her recliner, awake and alert, upon entrance to her room by the clinician. The patient greeted the clinician appropriately and was agreeable to participation in the cognitive linguistic assessment. Language Eval: Auditory Comprehends Simple Yes/No Ques: Functional Indent/Objects Multiple Lieberman: Functional Follows 1-Step Commands: Functional Follows General Conversations: Functional Language Eval: Verbal Language Completes Spontaneous Greeting: Functional Produces Auto, Serial Info: Functional Imitates Simple Words/Phrases: Functional Word Finding: Mild Requests Basic Needs: Functional States Basic Personal Info: Functional Language Evaluation: Reading Follows Simple Written Direct: Functional Language Evaluation: Writing Writes to Simple Dictation: Functional Cognitive Patient Orientation The patient was independently oriented to self, location, month, day of the week, and year. Objective Cognitive Domain Attention: WNL Memory: WNL Problem Solving: Functional Visuospatial Skills: WNL Composite Severity Rating: WNL Clock Drawing Severity Rating: WNL Objective Formal/Standardized Tests [facility] Mental Status Exam (UMS) Results The patient demonstrated a result of +27/30 on the SLUMS correlating to cognitive linguistic skills within normal limits. Oral Motor/Speech Production The patient does not display dysarthria or apraxia of speech. The patient is 1 00% intelligible in known and unknown contexts. Impression The patient demonstrated intact cognitive linguistic skills and reports her cognitive function is at baseline at this time. Speech Patient Assess Expression of Ideas/Wants: Expression (4) Understanding Verbal Content: Understands (4) Brief Interview-Mental Status: Yes Repetition of Three Words: Three (3) Temporal Orientation: Year: Correct (3) Temporal Orientation: Month: Accurate within 5 days(2) Temporal Orientation: Day: Correct (1) Recall : Wear to say "Sock": Yes, no cue required (2) Recall : Color: Yes, no cue required (2) Recall : Bed: Yes, no cue required (2) Memory/Recall Ability: Current season, That he or she is in a hsp/hsp unit Speech-Plan Treatment Plan Speech Therapy Treatment Plan: Discontinue ST Treatment Duration: Aug 21, 2022 Frequency: 1 time per week Estimated Hrs Per Day: .5 hour per day Rehab Potential: Fair Pt/Family Agrees to Plan: Yes Safety Risks/Education Teaching Recipient: Patient Teaching Methods: Discussion Response to Teaching: Verbalize Understanding Education Topics Provided: Results, Plan of Care Time Speech Therapy Time In: 10:00 Speech Therapy Time Out: 10:30 Total Billed Time: 30 Billed Treatment Time 1, ASHLEY SOLORZANO ELIZAB[facility] ST Aug 21, 2022 11:53
[2022-08-21] MEDS: ENOXAPARIN INJECTION 30 MG/0.3 ML SYR SC SCH (18:01)
[2022-08-21 19:42] VITALS: BP 129/72
[2022-08-21] MEDS: ZOLPIDEM 5 MG (AMBIEN) TAB PO SCH (20:46)
[2022-08-21] MEDS: AMITRIPTYLINE 150 MG (ELAVIL) TABLET PO SCH (20:46)
--- NOTE | 2022-08-22 06:25 | Individualized Plan of Care ---
Individualized Plan of Care Rehab Nursing IPOC Order Admission Date Aug 20, 2022 at 16:53 Current Orders Orders Admission Arrival Bed Request (08/20/22 17:05) Flu High Dose Quad 2518-6375 (Fluzone Hi (08/20/22 17:45) General/Regular (08/20/22 Dinner) Citalopram Tablet (Celexa Tablet) (08/21/22 08:00) Clopidogrel Tablet (Plavix Tablet) (08/20/22 21:00) Donepezil Tablet (Aricept Tablet) (08/20/22 21:00) Memantine Tablet (Namenda Tablet) (08/20/22 21:00) Zolpidem Tablet (Ambien Tablet) (08/20/22 21:00) (Nf) Amitriptyline Hcl (08/20/22 21:00) Sulfamethoxazole/Trimet Ds Tab (Bactrim (08/20/22 18:30) Admission Order(Inpt,Obs,Sdc) (08/20/22 18:29) Vital Signs: Per Unit Policy ( 08,16,00 (08/20/22 18:29) Uvaldo Hose , (08/20/22 18:29) Sequential Compression Device (08/20/22 18:29) Tie Mill Operator-Inpt Rehab Con (08/20/22 18:29) Rehab Nursing Orders-Ipoc (08/20/22 18:29) Physical Therapy Rehab Orders (08/20/22 18:29) Occupational Therapy Rehab Ord (08/20/22 18:29) Speech Therapy Rehab Orders (08/20/22 18:29) Cbc With Automated Diff (08/21/22 06:00) Comprehensive Metabolic Panel (08/21/22 06:00) Precautions (Aru) (08/20/22 18:29) Weekly Weight WEEK (08/20/22 18:29) Rehab-Intensity Of Therapy (08/20/22 18:29) Initiate Admission Nursing Pro .admission (08/20/22 18:29) Alprazolam Tablet (Xanax Tablet) (08/20/22 18:30) Diphenhydramine Tablet (Benadryl Tablet) (08/20/22 18:30) Docusate Sodium Capsule (Colace Capsule) (08/20/22 21:00) Docusate Sodium Capsule (Colace Capsule) (08/20/22 18:30) Bisacodyl Suppository (Dulcolax Supposit (08/20/22 18:30) Na Phos/Na Biphos Enema (Fleet Enema Gerardo (08/20/22 18:30) Loperamide Tablet (Imodium Tablet) (08/20/22 18:30) Enoxaparin Injection (Lovenox Injection) (08/20/22 18:30) Melatonin Tablet (Melatonin Tablet) (08/20/22 18:30) Polyethylene Glycol Powder Pkt (Miralax (08/20/22 21:00) Ondansetron Oral Dissolve Tab (Zofran (08/20/22 18:30) Senna S Tablet (Senokot S Tablet) (08/20/22 21:00) Acetaminophen Tablet/Caplet (Tylenol T (08/20/22 18:30) Code/Resuscitation (08/20/22 18:31) Ambulate 08,12,20 (08/20/22 18:31) Sequential Compression Device ONCE (08/20/22 18:31) Initiate Admission Nursing Pro .admission (08/20/22 18:31) Amitriptyline Tablet (Elavil Tablet) (08/20/22 21:00) Sulfamethoxazole/Trimet Ds Tab (Bactrim (08/20/22 19:00) Clopidogrel Tablet (Plavix Tablet) (08/21/22 09:00) Enoxaparin Injection (Lovenox Injection) (08/20/22 19:00) Donepezil Tablet (Aricept Tablet) (08/22/22 09:00) Patient Visit (08/21/22 ) Pt Eval Moderate Complexity (08/21/22 ) Functional Activities, Ea 15 (08/21/22 ) Exercise Therap, Ea 15 Min (08/21/22 ) Patient Visit (08/21/22 ) Speech Sound Lang Comp (08/21/22 ) Treat. Speech/Lang/Voice (08/21/22 ) Zolpidem Tablet (Ambien Tablet) (08/22/22 21:00) Lactulose Oral Solution (Enulose Oral So (08/22/22 12:00) Lactulose Oral Solution (Enulose Oral So (08/22/22 11:45) Patient Visit (08/22/22 ) Exercise Therap, Ea 15 Min (08/22/22 ) Functional Activities, Ea 15 (08/22/22 ) Gait Training, Ea 15 Min (08/22/22 ) Rehab Nursing Orders: Ongoing Assess. of Cognitive Status, Ongoing Assess. of Function Status, Bladder Management, Bladder Scan, Bladder Training, Bowel Management, Bowel Training, Disease Management & Educaiton, DVT Prophylaxis, Fall Prevention, Fluid/Electrolyte/Nutrition Mgmt, Infection Prevention, Medication Management & Education, Management of Risks & Complications, M anagement of Skin Intergrity, Nutrition Management, Pain Management, Patient/Family Support, Wound Management Intensity of Therapy to be met Patient to be seen: Min.3h per day/5 of 7d PT IPOC Problem List: Activity Tolerance, Functional Strength, Safety, Balance, Gait, Transfer, Bed Mobility, ROM Treatment Plan: Continue Plan of Care Bed Mobility, Education, Functional Activity Jossie, Functional Strength, Group Therapy, Gait, Safety, Therapeutic Exercise, Transfers Treatment Duration: Sep 04, 2022 Frequency: At least 5 of 7 days/Wk (IRF) Estimated Hrs Per Day: 1.5 hours per day OT IPOC Problems: Decreased Activ Tolerance, Decreased UE Strength, Impaired Coordination, Impaired Funct Balance, Impaired I ADL's, Impaired Self-Care Skills OT Treatment, Training and Edu: Yes Plan of Care: ADL Retraining, Functional Mobility, Group Exercise/Act as Ind, UE Funct Exercise/Act Treatment Duration: Sep 07, 2022 Frequency: At least 5 of 7 days/Wk (IRF) Estimated Hrs Per Day: 1.[address] IPOC Speech Therapy Treatment Plan: Discontinue ST Treatment Duration: Aug 21, 2022 Frequency: 1 time per week Estimated Hrs Per Day: .5 hour per day Tie Mill Operator/Case Mgmt Tie Mill Operator/Case Managemen: Discharge Planning Dietitian/Fuel Dock Attendant Dietitian/Fuel Dock Attendant to monitor nutritional status and make changes and/or recommendations as needed and work with speech pathology on dietary upgrades as the occur. Physician IPOC Medical Issues being managed closely and that require the 24 hour availability of a physician: Recent falls and current and acute UTI will require close monitoring until completing abx and will require close monitoring due to dementia and other risks Medical Issues: Bowel/Bladder Function, DVT Prophylaxis, Falls Precautions, Fluid/Electrolyte/Nutrition Balance, Infection Protection, Pain Management Brief Synthesis of Preadmission Screen, Post-Admission Evaluation, and Therapy Evaluations: PT OT will help increase independence and increase use of AD in order to regain function and decrease falls Medical Prognosis: Fair Anticipated Length of Stay: 7 days BERTO VIDES DO Aug 22, 2022 06:25
--- NOTE | 2022-08-22 06:25 | PM&R Progress Note ---
Subjective HPI/CC On Admission Date Seen by Provider: Aug 22, 2022 Time Seen by Provider: 09:00 Subjective/Events-last exam 08/22/2022: Pt is doing pretty well Still a fall risk Ambien was decreased to 2.5 since that made her even more off balance this morning Will try to wean it off 08/21/2022: Pt is doing pretty well Orthostatic hypotension noted Major balance deficits and is high risk for falls even using AD Plavix and Aricept ordered BID so will need to correct that Review of Systems General: Fatigue, Malaise Objective Exam Vital Signs Vital Signs Date Time Temp Pulse Resp B/P (MAP) Pulse Ox O2 Delivery O2 Flow Rate FiO2 08/22/22 20:00 36.6 84 18 145/65 (91) 91 Room Air Capillary Refill : General Appearance: No Apparent Distress, WD/WN, Chronically ill HEENT: PERRL/EOMI, Normal ENT Inspection, Pharynx Normal Neck: Full Range of Motion, Normal Inspection, Non Tender, Supple, Carotid Bruit Respiratory: Chest Non Tender, Lungs Clear, Normal Breath Sounds, No Accessory Muscle Use, No Respiratory Distress Cardiovascular: Regular Rate, Rhythm, No Edema, No Gallop, No JVD, No Murmur, Normal Peripheral Pulses Gastrointestinal: Normal Bowel Sounds, No Organomegaly, No Pulsatile Mass, Non Tender, Soft Back: Normal Inspection, No CVA Tenderness, No Vertebral Tenderness Extremity: Normal Capillary Refill, Normal Inspection, Normal Range of Motion, Non Tender, No Calf Tenderness, No Pedal Edema Neurologic/Psychiatric: Alert, Oriented x3 (Poor recall), No Motor/Sensory Deficits, cotton grader II-XII Norm as Tested, Abnormal Gait, Depressed Affect, Motor Weakness (Generalized in legs) Skin: Normal Color, Warm/Dry Lymphatic: No Adenopathy Results/Procedures Lab Patient resulted labs reviewed. FIM Transfers Therapy Code Descriptions/Definitions Functional [place] Measure: 0=Not Assessed/NA 4=Minimal Assistance 1=Total Assistance 5=Supervision or Setup 2=Maximal Assistance 6=Modified [place] 3=Moderate Assistance 7=Complete IndependenceSCALE: Activities may be completed with or without assistive devices. 9-Fohfgntbni-fbqcyrh completes the activity by him/herself with no assistance from a helper. 5-Set-up or Clean-up Assistance-helper sets up or cleans up; patient completes activity. [place] assists only prior to or following the activity. 4-Supervision or Touching Assistance-helper provides verbal cues and/or touching/steadying and/or contact guard assistance as patient completes activity. Assistance may be provided throughout the activity or intermittently. 3-Partial/Moderate Assistance-helper does LESS THAN HALF the effort. [place] lifts, holds or supports trunk or limbs, but provides less than half the effort. 2-Substantial/Maximal Assistance-helper does MORE THAN HALF the effort. [place] lifts or holds trunk or limbs and provides more than half the effort. 4-Shzspqqsx-ugtwfv does ALL the effort. Patient does none of the effort to complete the activity. Or, the assistance of 2 or more helpers is required for the patient to complete the activity. If activity was not attempted, code reason: 7-Patient Refused. 9-Not Applicable-not attempted and the patient did not perform the activity before the current illness, exacerbation or injury. 10-Not Attempted due to Environmental Limitations-(lack of equipment, weather restraints, etc.). 88-Not Attempted due to Medical Conditions or Safety Concerns. Roll Left to Right (QC): 6 Sit to Lying (QC): 6 Sit to Stand (QC): 4 (CGA) Chair/Wlq-bw-Ssede Xfer(QC): 4 (CGA) Car Transfer (QC): 4 (CGA) Gait Training Does the Patient Walk?: Yes Walk 10 feet (QC): 4 Walk 50 ft with 2 Turns(QC): 4 Walk 150 ft (QC): 88 Walking 10ft/uneven surface-QC: 4 Gait Assistive Device: FWW Wheelchair Training Does the Pt Use a Wheelchair?: No Wheel 50 ft with 2 turns (QC): 9 Wheel 150 ft (QC): 9 Type of Wheelchair: N/A Stair Training #of Steps: 4 1 Step (curb) (QC): 4 4 Steps (QC): 4 12 Steps (QC): 88 Balance Picking up an Object (QC): 4 ADL-Treatment Eating (QC): 6 Oral Hygiene (QC): 4 (SBA at sink) Shower/Bathe Self (QC): 4 (SBA ) Upper Body Dressing (QC): 3 (Min A with buttons) Lower Body Dressing (QC): 4 (SBA) On/Off Footwear (QC): 4 (SBA donning compression socks and slip on shoes.) Toileting Hygiene (QC): 4 (SBA) Assessment/Plan Assessment and Plan Assess & Plan/Chief Complaint Assessment: Falls and debility Recent UTI Dementia TIA? Plan: Home meds Supportive care Monitor closely Aggressive PT and OT 08/21/2022: Supportive care continues Focus on fall prevention 08/22/2022: Fall risk prevention (1) Frequent falls Status: Acute (2) General weakness Status: Acute (3) UTI (urinary tract infection) Status: Acute (4) Closed head injury Status: Acute BERTO VIDES DO Aug 22, 2022 06:25
[2022-08-22 07:35] VITALS: BP 137/62
[2022-08-22] MEDS: TRIM/SULFAMETH 160/800 (SEPTRA DS) TAB PO SCH ×2 (07:59→18:22)
[2022-08-22] MEDS: CLOPIDOGREL 75 MG (PLAVIX) TABLET PO SCH (07:59)
[2022-08-22] MEDS: MEMANTINE 10 MG (NAMENDA) TABLET PO SCH ×2 (07:59→21:22)
[2022-08-22] MEDS: DOCUSATE SODIUM 100 MG (COLACE) CAP PO SCH ×2 (07:59→21:22)
[2022-08-22] MEDS: SENNA W/DOCUSATE (SENOKOT S) TABLET PO SCH ×2 (07:59→21:23)
[2022-08-22] MEDS: polyethylene glycoL POWDER 17 GM (MIRALAX) PACK PO SCH ×2 (08:00→21:22)
[2022-08-22] MEDS: DONEPEZIL 10 MG (ARICEPT) TAB PO SCH (08:00)
--- NOTE | 2022-08-22 08:48 | Physical Therapy Daily Note ---
PT Daily Note-Current Subjective Pt. agrees to Rx, states she is not use to using a FWW but feels it may help her be safer, pt. states " I was diagnosed with Alzheimers in 2016 and now my does most everything at home" Pt. also shared how she has fallen several times at home Pain Location: No Pain Reported Section J - Health Conditions 1. Rarely or not at all 2. Occasionally 3. Frequently 4. Almost constantly 8. Unable to answer Pain Effect on Sleep: 1 Pain Interference with Therapy: 1 Pain Interference w/Day-to-Day: 1 Mental Status Patient Orientation: Person, Place, Situation, Normal For Age Transfers SCALE: Activities may be completed with or without assistive devices. 6-Utwoiwyupj-qfpcomn completes the activity by him/herself with no assistance from a helper. 5-Set-up or Clean-up Assistance-helper sets up or cleans up; patient completes activity. [place] assists only prior to or following the activity. 4-Supervision or Touching Assistance-helper provides verbal cues and/or touching/steadying and/or contact guard assistance as patient completes activity. Assistance may be provided throughout the activity or intermittently. 3-Partial/Moderate Assistance-helper does LESS THAN HALF the effort. [place] lifts, holds or supports trunk or limbs, but provides less than half the effort. 2-Substantial/Maximal Assistance-helper does MORE THAN HALF the effort. [place] lifts or holds trunk or limbs and provides more than half the effort. 2-Qmkqsukoy-zdduqz does ALL the effort. Patient does none of the effort to complete the activity. Or, the assistance of 2 or more helpers is required for the patient to complete the activity. If activity was not attempted, code reason: 7-Patient Refused. 9-Not Applicable-not attempted and the patient did not perform the activity before the current illness, exacerbation or injury. 10-Not Attempted due to Environmental Limitations-(lack of equipment, weather restraints, etc.). 88-Not Attempted due to Medical Conditions or Safety Concerns. Roll Left & Right (QC): 6 Sit to Lying (QC): 6 Lying to Sitting/Side of Bed(Q: 6 Sit to Stand (QC): 6 Chair/Rfp-dm-Iphqc Xfer(QC): 6 Toilet Transfer (QC): 6 Weight Bearing Right Lower Extremity: Right Full Weight Bearing Left Lower Extremity: Left Full Weight Bearing Gait Training Does the Patient Walk?: Yes Walk 10 feet (QC): 4 Walk 50 ft with 2 Turns(QC): 4 Walk 150 ft (QC): 4 Gait Persons Needed: 1 Gait Assistive Device: FWW pt. required instruction for use of FWW сергей for efficient turning and approaches to chairs , safe use of hands etc, no LOB [id number], 50 ft x 1 Exercises Supine Ex: Bridging, Ankle pumps, Quad Set, Rolling, Glut sets, Heel Slides, Short Arc Quads, Scooting, Straight leg raise, Hip abd/add Supine Reps: 20 Standing: Hip Abduction, Heel/toe raises, Marching Standing Reps: 12 leg presses on Nustep x 10 NuStep Minutes: 8 NuStep Workload: 1 Treatments TRFs, gait, therex, toileting with SBA only Assessment Current Status: Good Progress needs directed for all but follows instruction, This patient has a balance and mobility limitation that impairs her ability to participate in ambulation safely without the use of FWW. She demonstrates much safer gait with use of FWW.. Pt. seem to be able to ambulate much safer with the use of this device PT Short Term Goals Short Term Goals Time Frame: Aug 28, 2022 Sit to lyin (SBA) Lying to sitting on side of be: 4 (SBA) Sit to stand: 4 (SBA) Chair/knh-ai-anpbp transfer: 4 (SBA) Toilet transfer: 4 (SBA) Car transfer: 4 (SBA) Walk 10 feet: 4 (SBA) Walk 50 feet with two turns: 4 (SBA) Walk 150 feet: 4 (SBA) Walking 10ft on uneven surface: 4 (SBA) 1 step (curb): 4 (SBA) 4 steps: 4 (SBA) Picking up objects: 4 (SBA, using wildlife ecologist) Does pt use a wc or scooter: No Type: N/A PT Stud Beef Cattle Farmer Goals Stud Beef Cattle Farmer Goals PT Skilled Nursing Goals Time Frame: Sep 11, 2022 Roll Left & Right (QC): 6 Sit to Lying (QC): 6 Lying-Sitting on Side/Bed(QC): 6 Sit to Stand (QC): 6 Chair/Jsl-vj-Mxanq Xfer(QC): 6 Toilet Transfer (QC): 6 Car Transfer (QC): 6 Does the Patient Walk: Yes Walk 10 feet (QC): 6 Walk 50ft with 2 Turns (QC): 6 Walk 150 ft (QC): 6 Walking 10ft on Uneven Surface: 6 1 Step (curb) (QC): 6 4 Steps (QC): 6 12 Steps (QC): 88 Picking up an Object (QC): 6 Does the Pt use WC or Scooter?: No Wheel 50 feet with 2 turns (QC: 9 Type: N/A Wheel 150 feet: 9 Type: N/A PT Plan Treatment/Plan Treatment Plan: Continue Plan of Care Treatment Plan: Bed Mobility, Education, Functional Activity Jossie, Functional Strength, Group Therapy, Gait, Safety, Therapeutic Exercise, Transfers Treatment Duration: Sep 04, 2022 Frequency: At least 5 of 7 days/Wk (IRF) Estimated Hrs Per Day: 1.5 hours per day Patient and/or Family Agrees t: Yes Safety Risks/Education Patient Education: Gait Training, Transfer Techniques, Correct Positioning, Disease Process, Safety Issues Teaching Recipient: Patient Teaching Methods: Demonstration, Discussion Response to Teaching: Verbalize Understanding, Return Demonstration, Reinforcement Needed Time Time In: 745 Time Out: 845 Total Billed Treatment Time: 60 Total Billed Treatment 1,EX25m,GT15m,FA20m HARJEET JOSEPH [employer]REARMS SALES ASSOCIATE Aug 22, 2022 08:48
--- NOTE | 2022-08-22 09:33 | Occupational Ther Daily Note ---
OT Current Status-Daily Note Subjective [id number]: Pt in recliner, agreeable to OT Tx. Feels like she slept well last night [id number]: Pt in recliner at start of session, agreeable to OT Tx. ADL-Treatment Therapy Code Descriptions/Definitions Functional [place] Measure: 0=Not Assessed/NA 4=Minimal Assistance 1=Total Assistance 5=Supervision or Setup 2=Maximal Assistance 6=Modified [place] 3=Moderate Assistance 7=Complete IndependenceSCALE: Activities may be completed with or without assistive devices. 7-Idcicbwjhw-niyqexs completes the activity by him/herself with no assistance from a helper. 5-Set-up or Clean-up Assistance-helper sets up or cleans up; patient completes activity. [place] assists only prior to or following the activity. 4-Supervision or Touching Assistance-helper provides verbal cues and/or touching/steadying and/or contact guard assistance as patient completes activity. Assistance may be provided throughout the activity or intermittently. 3-Partial/Moderate Assistance-helper does LESS THAN HALF the effort. [place] lifts, holds or supports trunk or limbs, but provides less than half the effort. 2-Substantial/Maximal Assistance-helper does MORE THAN HALF the effort. [place] lifts or holds trunk or limbs and provides more than half the effort. 2-Daeuvokhv-awntnc does ALL the effort. Patient does none of the effort to complete the activity. Or, the assistance of 2 or more helpers is required for the patient to complete the activity. If activity was not attempted, code reason: 7-Patient Refused. 9-Not Applicable-not attempted and the patient did not perform the activity before the current illness, exacerbation or injury. 10-Not Attempted due to Environmental Limitations-(lack of equipment, weather restraints, etc.). 88-Not Attempted due to Medical Conditions or Safety Concerns. Eating (QC): 6 Oral Hygiene (QC): 6 Upper Body Dressing (QC): 4 (SBA, 1 VC to make sure she buttoned all buttons on shirt.) Lower Body Dressing (QC): 6 On/Off Footwear: 6 Toileting Hygiene (QC): 6 Toilet Transfer (QC): 6 Other Treatment [id number]: Pt in recliner, used FWW around her room to gather clothes, complete toileting, dressing, oral care and grooming tasks. Pt independent with tasks, except UE dressing (SBA for 1 VC in order to complete all buttons on her shirt). Pt returned to recliner. Post tx, pt in recliner, call light in reach and all needs met. [id number]: Pt in recliner, used FWW to perform functional mobility to therapy gym, SBA. OT tx focused on increasing BUE strength, activity tolerance, and fine motor strength/coordination. Pt completed arm bike x10 mins, rest break as needed. Pt then removed beads from moderate-heavy resistance (green) theraputty. Pt able to locate all but 1 bead. Pt completed peg abhijit task, matching colored pegs using tip to tip pinch. Pt able to complete task, 1 VC during task. Pt completed graded clothespin task, placing/removing clothespins ranging 1-5lbs from horizontal and vertical bar. Pt completed x1 round each hand. Pt used FWW to return to her room, transferring onto toilet. Pt completed toileting and hand hygiene independently, then transferred to recliner. Post tx, pt in recliner, call light in reach and all needs met. Education OT Patient Education: Correct positioning, Energy conservation, Modified ADL techniques, Progress toward Goal/Update tx plan, Purpose of tx/functional activities, Rehab process Teaching Recipient: Patient Teaching Methods: Discussion Response to Teaching: Verbalize Understanding OT Short Term Goals Short Term Goals Time Frame: Aug 31, 2022 Upper body dressin Lower body dressin Putting on/taking off footwear: 5 OT Halfway Goals Halfway Goals Time Frame: Sep 07, 2022 Acute change in mental status: 0 Inattention: 0 Disorganized thinkin Altered level of consciousness: 0 Eating (QC): 6 Oral Hygiene (QC): 6 Toileting Hygiene (QC): 6 Shower/Bathe Self (QC): 6 Upper Body Dressing (QC): 6 Lower Body Dressing (QC): 6 On/Off Footwear (QC): 6 Additional Goals: 1-Demonstrate ADL Tasks, 2-Verbalize Understanding, 3- ImproveStrength/Jossie 1=Demonstrate adherence to instructed precautions during ADL tasks. 2=Patient will verbalize/demonstrate understanding of assistive devices/modifications for ADL. 3=Patient will improve strength/tolerance for activity to enable patient to perform ADL's. OT Education/Plan Problem List/Assessment Assessment: Decreased Activ Tolerance, Decreased UE Strength, Impaired Funct Balance, Impaired I ADL's, Impaired Self-Care Skills Discharge Recommendations Plan/Recommendations: Continue POC Treatment Plan/Plan of Care Patient would benefit from OT for education, treatment and training to promote independence in ADL's, mobility, safety and/or upper extremity function for ADL's. Plan of Care: ADL Retraining, Functional Mobility, Group Exercise/Act as Ind, UE Funct Exercise/Act Treatment Duration: Sep 07, 2022 Frequency: At least 5 of 7 days/Wk (IRF) Estimated Hrs Per Day: 1.5 hours per day Agreement: Yes Rehab Potential: Fair Time Start Time: 09:00 ([id number]) Stop Time: 11:15 ([id number]) Total Time Billed (hr/min): 90 Billed Treatment Time 0306-0895: 1, ADL 2 4216-5941: 1, EX (15'), FA 2 (30'), ADL (15') KARLA CORBETT OT Aug 22, 2022 09:33
[2022-08-22] MEDS ORDERED: LACTULOSE SYRUP 10GM/15ML (ENULOSE) 30ML UDC PO PRN (11:45)
[2022-08-22] MEDS ORDERED: LACTULOSE SYRUP 10GM/15ML (ENULOSE) 30ML UDC PO NR (12:00)
--- NOTE | 2022-08-22 13:18 | Physical Therapy Daily Note ---
PT Daily Note-Current Subjective Pt. agrees to Rx, feels she has made progress in the short time she has been here. Wants some assistance in calling her by phone from her room Pain Location: No Pain Reported Section J - Health Conditions 1. Rarely or not at all 2. Occasionally 3. Frequently 4. Almost constantly 8. Unable to answer Pain Effect on Sleep: 1 Pain Interference with Therapy: 1 Pain Interference w/Day-to-Day: 1 Mental Status Patient Orientation: Normal For Age Transfers SCALE: Activities may be completed with or without assistive devices. 1-Urdedrkfps-fjdegdh completes the activity by him/herself with no assistance from a helper. 5-Set-up or Clean-up Assistance-helper sets up or cleans up; patient completes activity. [place] assists only prior to or following the activity. 4-Supervision or Touching Assistance-helper provides verbal cues and/or touching/steadying and/or contact guard assistance as patient completes activity. Assistance may be provided throughout the activity or intermittently. 3-Partial/Moderate Assistance-helper does LESS THAN HALF the effort. [place] lifts, holds or supports trunk or limbs, but provides less than half the effort. 2-Substantial/Maximal Assistance-helper does MORE THAN HALF the effort. [place] lifts or holds trunk or limbs and provides more than half the effort. 0-Fhlersbmj-vnfbcj does ALL the effort. Patient does none of the effort to complete the activity. Or, the assistance of 2 or more helpers is required for the patient to complete the activity. If activity was not attempted, code reason: 7-Patient Refused. 9-Not Applicable-not attempted and the patient did not perform the activity before the current illness, exacerbation or injury. 10-Not Attempted due to Environmental Limitations-(lack of equipment, weather restraints, etc.). 88-Not Attempted due to Medical Conditions or Safety Concerns. emphasis on sit to stand and stand to sit with safe turns, approaching chair and bed and safe use of device, using hands on arms of chair etc. all done with cuing/instruction only Weight Bearing Right Lower Extremity: Right Full Weight Bearing Left Lower Extremity: Left Full Weight Bearing Gait Training Does the Patient Walk?: Yes Gait Assistive Device: FWW 75ft x 6 FWW with emphasis on turns and approaches at chair, no LOB safe use of AD, picking walker up slightly to turn this pm with more fluid safer gait , Exercises Seated Therapy Exercises: Ankle pumps, Sit to stand, Long arc quads, Hip flexion, Hip abd/add Seated Reps: 15 Treatments toileted, stood to wash hands, all managed SBA, gait, seated LE ex Assessment Current Status: Good Progress PT Short Term Goals Short Term Goals Time Frame: Aug 28, 2022 Sit to lyin (SBA) Lying to sitting on side of be: 4 (SBA) Sit to stand: 4 (SBA) Chair/uhm-yg-yqtad transfer: 4 (SBA) Toilet transfer: 4 (SBA) Car transfer: 4 (SBA) Walk 10 feet: 4 (SBA) Walk 50 feet with two turns: 4 (SBA) Walk 150 feet: 4 (SBA) Walking 10ft on uneven surface: 4 (SBA) 1 step (curb): 4 (SBA) 4 steps: 4 (SBA) Picking up objects: 4 (SBA, using nurse esthetician) Does pt use a wc or scooter: No Type: N/A PT Retirement Goals Retirement Goals PT Retirement Goals Time Frame: Sep 11, 2022 Roll Left & Right (QC): 6 Sit to Lying (QC): 6 Lying-Sitting on Side/Bed(QC): 6 Sit to Stand (QC): 6 Chair/Fag-yq-Mvenk Xfer(QC): 6 Toilet Transfer (QC): 6 Car Transfer (QC): 6 Does the Patient Walk: Yes Walk 10 feet (QC): 6 Walk 50ft with 2 Turns (QC): 6 Walk 150 ft (QC): 6 Walking 10ft on Uneven Surface: 6 1 Step (curb) (QC): 6 4 Steps (QC): 6 12 Steps (QC): 88 Picking up an Object (QC): 6 Does the Pt use WC or Scooter?: No Wheel 50 feet with 2 turns (QC: 9 Type: N/A Wheel 150 feet: 9 Type: N/A PT Plan Treatment/Plan Treatment Plan: Continue Plan of Care Treatment Plan: Bed Mobility, Education, Functional Activity Jossie, Functional Strength, Group Therapy, Gait, Safety, Therapeutic Exercise, Transfers Treatment Duration: Sep 04, 2022 Frequency: At least 5 of 7 days/Wk (IRF) Estimated Hrs Per Day: 1.5 hours per day Patient and/or Family Agrees t: Yes Safety Risks/Education Patient Education: Gait Training, Transfer Techniques, Correct Positioning, Disease Process, Safety Issues Teaching Recipient: Patient Teaching Methods: Demonstration, Discussion Response to Teaching: Verbalize Understanding, Return Demonstration, Reinforcement Needed Time Time In: 1250 Time Out: 1420 Total Billed Treatment Time: 30 Total Billed Treatment 1,FA10m,GT20m HARJEET JOSEPH METAL FENCE ERECTOR Aug 22, 2022 13:18
[2022-08-22] MEDS: ENOXAPARIN INJECTION 30 MG/0.3 ML SYR SC SCH (18:22)
[2022-08-22 20:00] VITALS: BP 145/65
[2022-08-22] MEDS: ZOLPIDEM 5 MG (AMBIEN) TAB PO SCH (21:22)
[2022-08-22] MEDS: AMITRIPTYLINE 150 MG (ELAVIL) TABLET PO SCH (21:22)
--- NOTE | 2022-08-23 05:21 | PM&R Progress Note ---
Subjective HPI/CC On Admission Date Seen by Provider: Aug 23, 2022 Time Seen by Provider: 10:00 Subjective/Events-last exam 08/23/2022: Patient doing really well Orthostatic hypotension noted so we will start on midodrine No other concerns 08/22/2022: Pt is doing pretty well Still a fall risk Ambien was decreased to 2.5 since that made her even more off balance this morning Will try to wean it off 08/21/2022: Pt is doing pretty well Orthostatic hypotension noted Major balance deficits and is high risk for falls even using AD Plavix and Aricept ordered BID so will need to correct that Review of Systems General: Fatigue, Malaise Objective Exam Vital Signs Vital Signs Date Time Temp Pulse Resp B/P (MAP) Pulse Ox O2 Delivery O2 Flow Rate FiO2 08/23/22 20:54 36.7 83 18 126/63 (84) 92 Room Air 08/23/22 11:10 1.50 Capillary Refill : General Appearance: No Apparent Distress, WD/WN, Chronically ill HEENT: PERRL/EOMI, Normal ENT Inspection, Pharynx Normal Neck: Full Range of Motion, Normal Inspection, Non Tender, Supple, Carotid Bruit Respiratory: Chest Non Tender, Lungs Clear, Normal Breath Sounds, No Accessory Muscle Use, No Respiratory Distress Cardiovascular: Regular Rate, Rhythm, No Edema, No Gallop, No JVD, No Murmur, Normal Peripheral Pulses Gastrointestinal: Normal Bowel Sounds, No Organomegaly, No Pulsatile Mass, Non Tender, Soft Back: Normal Inspection, No CVA Tenderness, No Vertebral Tenderness Extremity: Normal Capillary Refill, Normal Inspection, Normal Range of Motion, Non Tender, No Calf Tenderness, No Pedal Edema Neurologic/Psychiatric: Alert, Oriented x3 (Poor recall), No Motor/Sensory Deficits, program trainer II-XII Norm as Tested, Abnormal Gait, Depressed Affect, Motor Weakness (Generalized in legs) Skin: Normal Color, Warm/Dry Lymphatic: No Adenopathy Results/Procedures Lab Patient resulted labs reviewed. FIM Transfers Therapy Code Descriptions/Definitions Functional [place] Measure: 0=Not Assessed/NA 4=Minimal Assistance 1=Total Assistance 5=Supervision or Setup 2=Maximal Assistance 6=Modified [place] 3=Moderate Assistance 7=Complete IndependenceSCALE: Activities may be completed with or without assistive devices. 9-Bdeiknqhog-trkeorj completes the activity by him/herself with no assistance from a helper. 5-Set-up or Clean-up Assistance-helper sets up or cleans up; patient completes activity. [place] assists only prior to or following the activity. 4-Supervision or Touching Assistance-helper provides verbal cues and/or touching/steadying and/or contact guard assistance as patient completes activity. Assistance may be provided throughout the activity or intermittently. 3-Partial/Moderate Assistance-helper does LESS THAN HALF the effort. [place] lifts, holds or supports trunk or limbs, but provides less than half the effort. 2-Substantial/Maximal Assistance-helper does MORE THAN HALF the effort. [place] lifts or holds trunk or limbs and provides more than half the effort. 7-Oaigyiqsy-jyfmcg does ALL the effort. Patient does none of the effort to complete the activity. Or, the assistance of 2 or more helpers is required for the patient to complete the activity. If activity was not attempted, code reason: 7-Patient Refused. 9-Not Applicable-not attempted and the patient did not perform the activity before the current illness, exacerbation or injury. 10-Not Attempted due to Environmental Limitations-(lack of equipment, weather restraints, etc.). 88-Not Attempted due to Medical Conditions or Safety Concerns. Roll Left to Right (QC): 6 Sit to Lying (QC): 6 Sit to Stand (QC): 6 Chair/Hur-zw-Nnqcs Xfer(QC): 6 Car Transfer (QC): 4 (CGA) Gait Training Does the Patient Walk?: Yes Walk 10 feet (QC): 4 Walk 50 ft with 2 Turns(QC): 4 Walk 150 ft (QC): 4 Walking 10ft/uneven surface-QC: 4 Gait Persons Needed: 1 Gait Assistive Device: FWW Wheelchair Training Does the Pt Use a Wheelchair?: No Wheel 50 ft with 2 turns (QC): 9 Wheel 150 ft (QC): 9 Type of Wheelchair: N/A Stair Training #of Steps: 4 1 Step (curb) (QC): 4 4 Steps (QC): 4 12 Steps (QC): 88 Balance Picking up an Object (QC): 4 ADL-Treatment Eating (QC): 6 Oral Hygiene (QC): 6 Shower/Bathe Self (QC): 4 (SBA ) Upper Body Dressing (QC): 4 (SBA, 1 VC to make sure she buttoned all buttons on shirt.) Lower Body Dressing (QC): 6 On/Off Footwear (QC): 6 Toileting Hygiene (QC): 6 Toilet Transfer (QC): 6 Assessment/Plan Assessment and Plan Assess & Plan/Chief Complaint Assessment: Falls and debility Recent UTI Dementia TIA? Orthostatic hypotension 08/23/2022 started on midodrine Plan: Home meds Supportive care Monitor closely Aggressive PT and OT 08/21/2022: Supportive care continues Focus on fall prevention 08/22/2022: Fall risk prevention 08/23/2022: Midodrine initiation (1) Frequent falls Status: Acute (2) General weakness Status: Acute (3) UTI (urinary tract infection) Status: Acute (4) Closed head injury Status: Acute BERTO VIDES DO Aug 23, 2022 05:21
[2022-08-23 08:00] VITALS: BP 145/65
[2022-08-23] MEDS: DOCUSATE SODIUM 100 MG (COLACE) CAP PO SCH ×2 (08:26→20:53)
[2022-08-23] MEDS: DONEPEZIL 10 MG (ARICEPT) TAB PO SCH (08:26)
[2022-08-23] MEDS: CLOPIDOGREL 75 MG (PLAVIX) TABLET PO SCH (08:26)
[2022-08-23] MEDS: TRIM/SULFAMETH 160/800 (SEPTRA DS) TAB PO SCH ×2 (08:26→18:05)
[2022-08-23] MEDS: MEMANTINE 10 MG (NAMENDA) TABLET PO SCH ×2 (08:27→20:41)
[2022-08-23] MEDS: polyethylene glycoL POWDER 17 GM (MIRALAX) PACK PO SCH ×2 (08:35→20:53)
[2022-08-23] MEDS: SENNA W/DOCUSATE (SENOKOT S) TABLET PO SCH ×2 (08:35→20:53)
--- NOTE | 2022-08-23 08:45 | Physical Therapy Daily Note ---
PT Daily Note-Current Subjective Pt. up in recliner, having just finished breakfast, pt. states she did not sleep well and feels like that is bc they are giving her less ambien than she gets at home, "I have taken that dosage for years and it has worked fine". Pt. agrees to Rx, but states she feels SOB after walking approx 100ft. (see below) Pt. also c/o of dizziness upon standing , ( see results b elow) Pain Location: No Pain Reported Section J - Health Conditions 1. Rarely or not at all 2. Occasionally 3. Frequently 4. Almost constantly 8. Unable to answer Pain Effect on Sleep: 1 Pain Interference with Therapy: 1 Pain Interference w/Day-to-Day: 1 Mental Status Patient Orientation: Normal For Age Attachments: Oxygen (2L placed by nurse after episode) Transfers SCALE: Activities may be completed with or without assistive devices. 8-Hxwovjsayy-tddxlbb completes the activity by him/herself with no assistance from a helper. 5-Set-up or Clean-up Assistance-helper sets up or cleans up; patient completes activity. [place] assists only prior to or following the activity. 4-Supervision or Touching Assistance-helper provides verbal cues and/or touching/steadying and/or contact guard assistance as patient completes activity. Assistance may be provided throughout the activity or intermittently. 3-Partial/Moderate Assistance-helper does LESS THAN HALF the effort. [place] lifts, holds or supports trunk or limbs, but provides less than half the effort. 2-Substantial/Maximal Assistance-helper does MORE THAN HALF the effort. [place] lifts or holds trunk or limbs and provides more than half the effort. 7-Jtftbitqb-xvfdjt does ALL the effort. Patient does none of the effort to complete the activity. Or, the assistance of 2 or more helpers is required for the patient to complete the activity. If activity was not attempted, code reason: 7-Patient Refused. 9-Not Applicable-not attempted and the patient did not perform the activity before the current illness, exacerbation or injury. 10-Not Attempted due to Environmental Limitations-(lack of equipment, weather restraints, etc.). 88-Not Attempted due to Medical Conditions or Safety Concerns. Roll Left & Right (QC): 6 Sit to Lying (QC): 6 Lying to Sitting/Side of Bed(Q: 6 Sit to Stand (QC): 4 Chair/Lbw-rd-Ukihh Xfer(QC): 4 Toilet Transfer (QC): 4 good use of hands, safer sit to stand and stand to sit TRFs noted Weight Bearing Right Lower Extremity: Right Full Weight Bearing Left Lower Extremity: Left Full Weight Bearing Gait Training Does the Patient Walk?: Yes Walk 10 feet (QC): 4 Walk 50 ft with 2 Turns(QC): 4 Walk 150 ft (QC): 4 Gait Persons Needed: 1 Gait Assistive Device: FWW pt. ambulated 50 ft x 2, 100ft x 1 with CGA to SBA and much better use and handling of device , However pt. c/o dizziness and SOB while walking, o2 sats on rm air 89 to 91%, standing BP 74/51. seated BP 90/56 Exercises Supine Ex: Bridging, Ankle pumps, Quad Set, Rolling, Glut sets, Lower trunk rotation, Heel Slides, Short Arc Quads, Scooting, Straight leg raise, Hip abd/add Supine Reps: 20 Seated Therapy Exercises: Ankle pumps, Sit to stand, Long arc quads, Hip flexion, Hip abd/add Seated Reps: 15 Treatments pt. c/o she did not sleep well, upon gait approx 125 fto pt. c/o SOB , sats 88- 90% and reported to nursing along with c/o later by patient that she is dizzy upon standing and walking approx 25 ft, seated BP 90/56, standing 75/41, pt did complete seated and sup ex with good nuno, pt was taken back to room from gym via w/c , nursing present to assess, O2 instated by nursing at 2L min. Pt. encouraged to drink more fluids, Different straw obtained as pt c/o about the large one dripping all over her. call harp at hand, pt. in supine after rx, nurse at side Assessment Current Status: Fair Progress pt participation limited by c/o dizziness and SOB PT Short Term Goals Short Term Goals Time Frame: Aug 28, 2022 Sit to lyin (SBA) Lying to sitting on side of be: 4 (SBA) Sit to stand: 4 (SBA) Chair/nuc-aw-kmdek transfer: 4 (SBA) Toilet transfer: 4 (SBA) Car transfer: 4 (SBA) Walk 10 feet: 4 (SBA) Walk 50 feet with two turns: 4 (SBA) Walk 150 feet: 4 (SBA) Walking 10ft on uneven surface: 4 (SBA) 1 step (curb): 4 (SBA) 4 steps: 4 (SBA) Picking up objects: 4 (SBA, using lens blocker) Does pt use a wc or scooter: No Type: N/A PT Serging Machine Operator Goals Serging Machine Operator Goals PT Nursing Home Goals Time Frame: Sep 11, 2022 Roll Left & Right (QC): 6 Sit to Lying (QC): 6 Lying-Sitting on Side/Bed(QC): 6 Sit to Stand (QC): 6 Chair/Cih-lb-Vrswf Xfer(QC): 6 Toilet Transfer (QC): 6 Car Transfer (QC): 6 Does the Patient Walk: Yes Walk 10 feet (QC): 6 Walk 50ft with 2 Turns (QC): 6 Walk 150 ft (QC): 6 Walking 10ft on Uneven Surface: 6 1 Step (curb) (QC): 6 4 Steps (QC): 6 12 Steps (QC): 88 Picking up an Object (QC): 6 Does the Pt use WC or Scooter?: No Wheel 50 feet with 2 turns (QC: 9 Type: N/A Wheel 150 feet: 9 Type: N/A PT Plan Treatment/Plan Treatment Plan: Continue Plan of Care Treatment Plan: Bed Mobility, Education, Functional Activity Jossie, Functional Strength, Group Therapy, Gait, Safety, Therapeutic Exercise, Transfers Treatment Duration: Sep 04, 2022 Frequency: At least 5 of 7 days/Wk (IRF) Estimated Hrs Per Day: 1.5 hours per day Patient and/or Family Agrees t: Yes Safety Risks/Education Patient Education: Gait Training, Transfer Techniques, Correct Positioning, Disease Process, Safety Issues Teaching Recipient: Patient Teaching Methods: Demonstration, Discussion Response to Teaching: Verbalize Understanding, Return Demonstration, Reinforcement Needed Time Time In: 745 Time Out: 845 DATE: Aug 23, 2022 Total Billed Treatment Time: 60 Total Billed Treatment 1,FA20m,GT15m,EX25m HARJEET JOSEPH HEEL SPRAYER FIRST Aug 23, 2022 08:45
--- NOTE | 2022-08-23 10:01 | Occupational Ther Daily Note ---
OT Current Status-Daily Note Subjective Pt in bed, agreeable to OT Tx. Pt's nurse request to "take it easy" in tx, and requests OT to defer shower until tomorrow, completing as much seated tasks as possible. Pt reports having an "episode" this morning, dizziness, low blood pressure, and low O2 saturation during PT tx. Mental Status/Objective Patient Orientation: Person, Place, Time, Situation Attachments: Oxygen (1.5-2L) ADL-Treatment Therapy Code Descriptions/Definitions Functional [place] Measure: 0=Not Assessed/NA 4=Minimal Assistance 1=Total Assistance 5=Supervision or Setup 2=Maximal Assistance 6=Modified [place] 3=Moderate Assistance 7=Complete IndependenceSCALE: Activities may be completed with or without assistive devices. 7-Jdbizcpfcm-gwjlcbg completes the activity by him/herself with no assistance from a helper. 5-Set-up or Clean-up Assistance-helper sets up or cleans up; patient completes activity. [place] assists only prior to or following the activity. 4-Supervision or Touching Assistance-helper provides verbal cues and/or touching/steadying and/or contact guard assistance as patient completes activity. Assistance may be provided throughout the activity or intermittently. 3-Partial/Moderate Assistance-helper does LESS THAN HALF the effort. [place] lifts, holds or supports trunk or limbs, but provides less than half the effort. 2-Substantial/Maximal Assistance-helper does MORE THAN HALF the effort. [place] l ifts or holds trunk or limbs and provides more than half the effort. 1-Kxtfwsjze-seqdgo does ALL the effort. Patient does none of the effort to complete the activity. Or, the assistance of 2 or more helpers is required for the patient to complete the activity. If activity was not attempted, code reason: 7-Patient Refused. 9-Not Applicable-not attempted and the patient did not perform the activity before the current illness, exacerbation or injury. 10-Not Attempted due to Environmental Limitations-(lack of equipment, weather restraints, etc.). 88-Not Attempted due to Medical Conditions or Safety Concerns. Oral Hygiene (QC): 6 Upper Body Dressing (QC): 3 (min A with button up shirt, pt off by one button.) Lower Body Dressing (QC): 5 On/Off Footwear: 5 (compression socks and slip on shoes.) Toileting Hygiene (QC): 6 Other Treatment Pt in bed, transferred supine to sit EOB independently. Pt completed dressing at EOB, OT set up pt's clothing for her due to nurse requesting pt not to stand too much during tx. BP 102/59 after dressing, O2 saturation 93% on 2L NC. Pt transferred into bathroom using FWW, completed toileting, then transferred to w/c to complete grooming tasks seated at sink independently. Pt taken to therapy gym via w/c. OT tx focused on increasing BUE Strength, activity tolerance, and fine motor coordination/strength. Pt removed beads from moderate resistance, green, theraputty, able to locate all but 3 beads. Pt then placed/removed 1" pegs from foam pegboard, alternating hands, x100. Pts nurse present, turned O2 from 2L to 1.5L NC. Pt propelled w/c back to her room, min A with turns and education on how to perform w/c mobility. Matt wraps donned BLEs per dr request. Pt transferred from w/c to recliner, using FWW, SBA. BP 102/58, O2 93% on 1.5L NC. Post tx, pt in recliner, call light in reach and all needs met. Education OT Patient Education: Correct positioning, Energy conservation, Modified ADL techniques, Progress toward Goal/Update tx plan, Purpose of tx/functional activities, Rehab process Teaching Recipient: Patient Teaching Methods: Discussion Response to Teaching: Verbalize Understanding OT Short Term Goals Short Term Goals Time Frame: Aug 31, 2022 Upper body dressin Lower body dressin Putting on/taking off footwear: 5 OT Longterm Goals Bag Shaker Goals Time Frame: Sep 07, 2022 Acute change in mental status: 0 Inattention: 0 Disorganized thinkin Altered level of consciousness: 0 Eating (QC): 6 Oral Hygiene (QC): 6 Toileting Hygiene (QC): 6 Shower/Bathe Self (QC): 6 Upper Body Dressing (QC): 6 Lower Body Dressing (QC): 6 On/Off Footwear (QC): 6 Additional Goals: 1-Demonstrate ADL Tasks, 2-Verbalize Understanding, 3- ImproveStrength/Jossie 1=Demonstrate adherence to instructed precautions during ADL tasks. 2=Patient will verbalize/demonstrate understanding of assistive devices/modifications for ADL. 3=Patient will improve strength/tolerance for activity to enable patient to perform ADL's. OT Education/Plan Problem List/Assessment Assessment: Decreased Activ Tolerance, Decreased UE Strength, Impaired I ADL's Discharge Recommendations Plan/Recommendations: Continue POC Treatment Plan/Plan of Care Patient would benefit from OT for education, treatment and training to promote independence in ADL's, mobility, safety and/or upper extremity function for ADL 's. Plan of Care: ADL Retraining, Functional Mobility, Group Exercise/Act as Ind, UE Funct Exercise/Act Treatment Duration: Sep 07, 2022 Frequency: At least 5 of 7 days/Wk (IRF) Estimated Hrs Per Day: 1.5 hours per day Agreement: Yes Rehab Potential: Fair Time Start Time: 09:00 Stop Time: 10:30 DATE: Aug 23, 2022 Total Time Billed (hr/min): 90 Billed Treatment Time 1, ADL 3 (45'), FA 3 (45') KARLA CORBETT OT Aug 23, 2022 10:01
[2022-08-23] MEDS: MIDODRINE 10 MG (PROAMATINE) TAB PO SCH ×3 (11:06→20:41)
--- NOTE | 2022-08-23 11:56 | Physical Therapy Daily Note ---
PT Daily Note-Current Subjective Pt. states she still does not feel very well but agrees to therex in recliner Pain Location: No Pain Reported Section J - Health Conditions 1. Rarely or not at all 2. Occasionally 3. Frequently 4. Almost constantly 8. Unable to answer Pain Effect on Sleep: 1 Pain Interference with Therapy: 1 Pain Interference w/Day-to-Day: 1 Mental Status Patient Orientation: Normal For Age Attachments: Oxygen Transfers SCALE: Activities may be completed with or without assistive devices. 5-Xnpgqshfwn-rffkqty completes the activity by him/herself with no assistance from a helper. 5-Set-up or Clean-up Assistance-helper sets up or cleans up; patient completes activity. [place] assists only prior to or following the activity. 4-Supervision or Touching Assistance-helper provides verbal cues and/or touching/steadying and/or contact guard assistance as patient completes activity. Assistance may be provided throughout the activity or intermittently. 3-Partial/Moderate Assistance-helper does LESS THAN HALF the effort. [place] lifts, holds or supports trunk or limbs, but provides less than half the effort. 2-Substantial/Maximal Assistance-helper does MORE THAN HALF the effort. [place] lifts or holds trunk or limbs and provides more than half the effort. 2-Udytxuowi-cufdyy does ALL the effort. Patient does none of the effort to complete the activity. Or, the assistance of 2 or more helpers is required for the patient to complete the activity. If activity was not attempted, code reason: 7-Patient Refused. 9-Not Applicable-not attempted and the patient did not perform the activity before the current illness, exacerbation or injury. 10-Not Attempted due to Environmental Limitations-(lack of equipment, weather restraints, etc.). 88-Not Attempted due to Medical Conditions or Safety Concerns. Weight Bearing Right Lower Extremity: Right Full Weight Bearing Left Lower Extremity: Left Full Weight Bearing Exercises Supine Ex: Bridging, Ankle pumps, Quad Set, Glut sets, Heel Slides, Short Arc Quads, Scooting (up in recliner indep), Straight leg raise, Hip abd/add Supine Reps: 15 Seated Therapy Exercises: Ankle pumps, Sit to stand, Long arc quads, Hip flexion, Hip abd/add Seated Reps: 15 Treatments LE ex sit and supine Assessment Current Status: Good Progress c/o fatigue and needs rest breaks during ex PT Short Term Goals Short Term Goals Time Frame: Aug 28, 2022 Sit to lyin (SBA) Lying to sitting on side of be: 4 (SBA) Sit to stand: 4 (SBA) Chair/rqr-oo-keqbg transfer: 4 (SBA) Toilet transfer: 4 (SBA) Car transfer: 4 (SBA) Walk 10 feet: 4 (SBA) Walk 50 feet with two turns: 4 (SBA) Walk 150 feet: 4 (SBA) Walking 10ft on uneven surface: 4 (SBA) 1 step (curb): 4 (SBA) 4 steps: 4 (SBA) Picking up objects: 4 (SBA, using terminal supervisor) Does pt use a wc or scooter: No Type: N/A PT Roll Capper Goals Roll Capper Goals PT Longterm Goals Time Frame: Sep 11, 2022 Roll Left & Right (QC): 6 Sit to Lying (QC): 6 Lying-Sitting on Side/Bed(QC): 6 Sit to Stand (QC): 6 Chair/Bbg-qs-Strls Xfer(QC): 6 Toilet Transfer (QC): 6 Car Transfer (QC): 6 Does the Patient Walk: Yes Walk 10 feet (QC): 6 Walk 50ft with 2 Turns (QC): 6 Walk 150 ft (QC): 6 Walking 10ft on Uneven Surface: 6 1 Step (curb) (QC): 6 4 Steps (QC): 6 12 Steps (QC): 88 Picking up an Object (QC): 6 Does the Pt use WC or Scooter?: No Wheel 50 feet with 2 turns (QC: 9 Type: N/A Wheel 150 feet: 9 Type: N/A PT Plan Treatment/Plan Treatment Plan: Continue Plan of Care Treatment Plan: Bed Mobility, Education, Functional Activity Jossie, Functional Strength, Group Therapy, Gait, Safety, Therapeutic Exercise, Transfers Treatment Duration: Sep 04, 2022 Frequency: At least 5 of 7 days/Wk (IRF) Estimated Hrs Per Day: 1.5 hours per day Patient and/or Family Agrees t: Yes Safety Risks/Education Patient Education: Correct Positioning, Disease Process Response to Teaching: Reinforcement Needed Time Time In: 1125 Time Out: 1155 DATE: Aug 23, 2022 Total Billed Treatment Time: 30 Total Billed Treatment 1,EX30m HARJEET JOSEPH ELECTRONICS PRODUCTION SUPERVISOR Aug 23, 2022 11:56
[2022-08-23] MEDS: ENOXAPARIN INJECTION 30 MG/0.3 ML SYR SC SCH (18:05)
[2022-08-23] MEDS: AMITRIPTYLINE 150 MG (ELAVIL) TABLET PO SCH (20:41)
[2022-08-23] MEDS: ZOLPIDEM 5 MG (AMBIEN) TAB PO SCH (20:41)
[2022-08-23 20:54] VITALS: BP 126/63
[2022-08-24 07:32] VITALS: BP 120/72
[2022-08-24] MEDS: DONEPEZIL 10 MG (ARICEPT) TAB PO SCH (08:20)
[2022-08-24] MEDS: MEMANTINE 10 MG (NAMENDA) TABLET PO SCH ×2 (08:20→21:27)
[2022-08-24] MEDS: CLOPIDOGREL 75 MG (PLAVIX) TABLET PO SCH (08:20)
[2022-08-24] MEDS: DOCUSATE SODIUM 100 MG (COLACE) CAP PO SCH ×2 (08:20→21:30)
[2022-08-24] MEDS: TRIM/SULFAMETH 160/800 (SEPTRA DS) TAB PO SCH ×2 (08:21→18:33)
[2022-08-24] MEDS: SENNA W/DOCUSATE (SENOKOT S) TABLET PO SCH ×2 (08:27→21:30)
[2022-08-24] MEDS: MIDODRINE 10 MG (PROAMATINE) TAB PO SCH ×3 (08:27→21:27)
[2022-08-24] MEDS: polyethylene glycoL POWDER 17 GM (MIRALAX) PACK PO SCH ×2 (08:27→21:39)
--- NOTE | 2022-08-24 10:08 | Physical Therapy Daily Note ---
PT Daily Note-Current Subjective Pt. agrees to Rx, states she feels beer today and slept really well last night. However upon stance for Rx pt. again c/o dizziness and BPs were taken and pt. dound to be hypotensive in stance. Pain Location: No Pain Reported Section J - Health Conditions 1. Rarely or not at all 2. Occasionally 3. Frequently 4. Almost constantly 8. Unable to answer Pain Effect on Sleep: 1 Pain Interference with Therapy: 1 Pain Interference w/Day-to-Day: 1 Mental Status Patient Orientation: Normal For Age Transfers SCALE: Activities may be completed with or without assistive devices. 5-Kudfqddzvq-avkunxh completes the activity by him/herself with no assistance from a helper. 5-Set-up or Clean-up Assistance-helper sets up or cleans up; patient completes activity. [place] assists only prior to or following the activity. 4-Supervision or Touching Assistance-helper provides verbal cues and/or touching/steadying and/or contact guard assistance as patient completes activity. Assistance may be provided throughout the activity or intermittently. 3-Partial/Moderate Assistance-helper does LESS THAN HALF the effort. [place] lifts, holds or supports trunk or limbs, but provides less than half the effort. 2-Substantial/Maximal Assistance-helper does MORE THAN HALF the effort. [place] lifts or holds trunk or limbs and provides more than half the effort. 9-Knhvavjdh-murhtp does ALL the effort. Patient does none of the effort to complete the activity. Or, the assistance of 2 or more helpers is required for the patient to complete the activity. If activity was not attempted, code reason: 7-Patient Refused. 9-Not Applicable-not attempted and the patient did not perform the activity before the current illness, exacerbation or injury. 10-Not Attempted due to Environmental Limitations-(lack of equipment, weather restraints, etc.). 88-Not Attempted due to Medical Conditions or Safety Concerns. Roll Left & Right (QC): 6 Sit to Lying (QC): 6 Lying to Sitting/Side of Bed(Q: 6 Sit to Stand (QC): 6 Chair/Akl-og-Uvbfw Xfer(QC): 4 Weight Bearing Right Lower Extremity: Right Full Weight Bearing Left Lower Extremity: Left Full Weight Bearing Gait Training Does the Patient Walk?: Yes Walk 10 feet (QC): 4 Gait Persons Needed: 1 Gait Assistive Device: FWW unable to walk further secondary to c/o dizziness, hypotensive see recordings in assessment Wheelchair Training Does the Pt Use a Wheelchair?: Yes Wheel 50 ft with 2 turns (QC): 5 Wheel 150 ft (QC): 5 Type of Wheelchair: Manual pt. was instructed in w/c use and did well brakes and propelling forward and back , this was done as pt. c/o dizziness in stance and was found to be hypotensive in stance, see in assessment Exercises Supine Ex: Bridging, Ankle pumps, Quad Set, Rolling, Glut sets, Heel Slides, Short Arc Quads, Scooting, Straight leg raise, Hip abd/add Supine Reps: 12 (x2) Seated Therapy Exercises: Ankle pumps, Sit to stand, Long arc quads, Hip flexion, Hip abd/add Seated Reps: 12 Standing: Heel/toe raises, Marching Standing Reps: 8 NuStep Minutes: 12 NuStep Workload: 1 Treatments compression stockings and AE wraps donned before stance.LE ex sup and sit and min # in stance, gait short dist for TRF, w/c mob in lieu of gait , nustep Assessment Current Status: Fair Progress continues orthostatic hypotensive, pt. c/o dizziness in stance. supine BP122/57, hR 89BPM, O2 sats 91% seated BP 95/56 HR 89BPM, 94% seated BP 112/62 standing BP 77/47 PT Short Term Goals Short Term Goals Time Frame: Aug 28, 2022 Sit to lyin (SBA) Lying to sitting on side of be: 4 (SBA) Sit to stand: 4 (SBA) Chair/uci-dz-vndmn transfer: 4 (SBA) Toilet transfer: 4 (SBA) Car transfer: 4 (SBA) Walk 10 feet: 4 (SBA) Walk 50 feet with two turns: 4 (SBA) Walk 150 feet: 4 (SBA) Walking 10ft on uneven surface: 4 (SBA) 1 step (curb): 4 (SBA) 4 steps: 4 (SBA) Picking up objects: 4 (SBA, using airframe technician) Does pt use a wc or scooter: No Type: N/A PT Chucking And Sawing Machine Operator Goals Care Home Goals PT Care Home Goals Time Frame: Sep 11, 2022 Roll Left & Right (QC): 6 Sit to Lying (QC): 6 Lying-Sitting on Side/Bed(QC): 6 Sit to Stand (QC): 6 Chair/Efr-se-Pvbeh Xfer(QC): 6 Toilet Transfer (QC): 6 Car Transfer (QC): 6 Does the Patient Walk: Yes Walk 10 feet (QC): 6 Walk 50ft with 2 Turns (QC): 6 Walk 150 ft (QC): 6 Walking 10ft on Uneven Surface: 6 1 Step (curb) (QC): 6 4 Steps (QC): 6 12 Steps (QC): 88 Picking up an Object (QC): 6 Does the Pt use WC or Scooter?: No Wheel 50 feet with 2 turns (QC: 9 Type: N/A Wheel 150 feet: 9 Type: N/A PT Plan Treatment/Plan Treatment Plan: Continue Plan of Care Treatment Plan: Bed Mobility, Education, Functional Activity Jossie, Functional Strength, Group Therapy, Gait, Safety, Therapeutic Exercise, Transfers Treatment Duration: Sep 04, 2022 Frequency: At least 5 of 7 days/Wk (IRF) Estimated Hrs Per Day: 1.5 hours per day Patient and/or Family Agrees t: Yes Safety Risks/Education Patient Education: Gait Training, Transfer Techniques, Correct Positioning, W/C Management, Disease Process, Safety Issues Teaching Recipient: Patient Teaching Methods: Demonstration, Discussion Response to Teaching: Verbalize Understanding, Return Demonstration, Reinforcement Needed Time Time In: 900 Time Out: 1000 DATE: Aug 24, 2022 Total Billed Treatment Time: 60 Total Billed Treatment 1,EX35m,WC12m,FA13m HARJEET JOSEPH SENIOR STOCK PLAN ADMINISTRATOR Aug 24, 2022 10:08
--- NOTE | 2022-08-24 10:26 | PM&R Progress Note ---
Subjective HPI/CC On Admission Date Seen by Provider: Aug 24, 2022 Time Seen by Provider: 10:00 Subjective/Events-last exam 08/24/2022: Pt is doing pretty well Set for discharge tomorrow Orthostasis responded to Midodrine Overall denies any new problems 08/23/2022: Patient doing really well Orthostatic hypotension noted so we will start on midodrine No other concerns 08/22/2022: Pt is doing pretty well Still a fall risk Ambien was decreased to 2.5 since that made her even more off balance this morning Will try to wean it off 08/21/2022: Pt is doing pretty well Orthostatic hypotension noted Major balance deficits and is high risk for falls even using AD Plavix and Aricept ordered BID so will need to correct that Review of Systems General: Fatigue, Malaise Objective Exam Vital Signs Vital Signs Date Time Temp Pulse Resp B/P (MAP) Pulse Ox O2 Delivery O2 Flow Rate FiO2 08/24/22 09:00 93 Room Air 08/24/22 07:32 37.1 90 18 120/72 (88) 08/23/22 11:10 1.50 Capillary Refill : General Appearance: No Apparent Distress, WD/WN, Chronically ill HEENT: PERRL/EOMI, Normal ENT Inspection, Pharynx Normal Neck: Full Range of Motion, Normal Inspection, Non Tender, Supple, Carotid Bruit Respiratory: Chest Non Tender, Lungs Clear, Normal Breath Sounds, No Accessory Muscle Use, No Respiratory Distress Cardiovascular: Regular Rate, Rhythm, No Edema, No Gallop, No JVD, No Murmur, Normal Peripheral Pulses Gastrointestinal: Normal Bowel Sounds, No Organomegaly, No Pulsatile Mass, Non Tender, Soft Back: Normal Inspection, No CVA Tenderness, No Vertebral Tenderness Extremity: Normal Capillary Refill, Normal Inspection, Normal Range of Motion, Non Tender, No Calf Tenderness, No Pedal Edema Neurologic/Psychiatric: Alert, Oriented x3 (Poor recall), No Motor/Sensory Deficits, hospital orderly II-XII Norm as Tested, Abnormal Gait, Depressed Affect, Motor Weakness (Generalized in legs) Skin: Normal Color, Warm/Dry Lymphatic: No Adenopathy Results/Procedures Lab Patient resulted labs reviewed. FIM Transfers Therapy Code Descriptions/Definitions Functional [place] Measure: 0=Not Assessed/NA 4=Minimal Assistance 1=Total Assistance 5=Supervision or Setup 2=Maximal Assistance 6=Modified [place] 3=Moderate Assistance 7=Complete IndependenceSCALE: Activities may be completed with or without assistive devices. 3-Givzgmupco-eklcjuk completes the activity by him/herself with no assistance from a helper. 5-Set-up or Clean-up Assistance-helper sets up or cleans up; patient completes activity. [place] assists only prior to or following the activity. 4-Supervision or Touching Assistance-helper provides verbal cues and/or touching/steadying and/or contact guard assistance as patient completes activity. Assistance may be provided throughout the activity or intermittently. 3-Partial/Moderate Assistance-helper does LESS THAN HALF the effort. [place] lifts, holds or supports trunk or limbs, but provides less than half the effort. 2-Substantial/Maximal Assistance-helper does MORE THAN HALF the effort. [place] lifts or holds trunk or limbs and provides more than half the effort. 1-Wjliboxnd-dtzgkm does ALL the effort. Patient does none of the effort to complete the activity. Or, the assistance of 2 or more helpers is required for the patient to complete the activity. If activity was not attempted, code reason: 7-Patient Refused. 9-Not Applicable-not attempted and the patient did not perform the activity before the current illness, exacerbation or injury. 10-Not Attempted due to Environmental Limitations-(lack of equipment, weather restraints, etc.). 88-Not Attempted due to Medical Conditions or Safety Concerns. Roll Left to Right (QC): 6 Sit to Lying (QC): 6 Sit to Stand (QC): 6 Chair/Ndq-ag-Uaftz Xfer(QC): 4 Car Transfer (QC): 4 (CGA) Gait Training Does the Patient Walk?: Yes Walk 10 feet (QC): 4 Walk 50 ft with 2 Turns(QC): 4 Walk 150 ft (QC): 4 Walking 10ft/uneven surface-QC: 4 Gait Persons Needed: 1 Gait Assistive Device: FWW Wheelchair Training Does the Pt Use a Wheelchair?: Yes Wheel 50 ft with 2 turns (QC): 5 Wheel 150 ft (QC): 5 Type of Wheelchair: Manual Stair Training #of Steps: 4 1 Step (curb) (QC): 4 4 Steps (QC): 4 12 Steps (QC): 88 Balance Picking up an Object (QC): 4 ADL-Treatment Eating (QC): 6 Oral Hygiene (QC): 6 Shower/Bathe Self (QC): 4 (SBA ) Upper Body Dressing (QC): 3 (min A with button up shirt, pt off by one button.) Lower Body Dressing (QC): 5 On/Off Footwear (QC): 5 (compression socks and slip on shoes.) Toileting Hygiene (QC): 6 Toilet Transfer (QC): 6 Assessment/Plan Assessment and Plan Assess & Plan/Chief Complaint Assessment: Falls and debility Recent UTI Dementia TIA? Orthostatic hypotension 08/23/2022 started on midodrine Plan: Home meds Supportive care Monitor closely Aggressive PT and OT 08/21/2022: Supportive care continues Focus on fall prevention 08/22/2022: Fall risk prevention 08/23/2022: Midodrine initiation 08/24/2022: DC tomorrow (1) Frequent falls Status: Acute (2) General weakness Status: Acute (3) UTI (urinary tract infection) Status: Acute (4) Closed head injury Status: Acute BERTO VIDES DO Aug 24, 2022 10:26
--- NOTE | 2022-08-24 11:17 | Occupational Ther Daily Note ---
OT Current Status-Daily Note Subjective Pt in bed, agreeable to OT Tx. Mental Status/Objective Patient Orientation: Person, Place, Time, Situation ADL-Treatment Therapy Code Descriptions/Definitions Functional [place] Measure: 0=Not Assessed/NA 4=Minimal Assistance 1=Total Assistance 5=Supervision or Setup 2=Maximal Assistance 6=Modified [place] 3=Moderate Assistance 7=Complete IndependenceSCALE: Activities may be completed with or without assistive devices. 9-Nkivgjiixe-xtsrplb completes the activity by him/herself with no assistance from a helper. 5-Set-up or Clean-up Assistance-helper sets up or cleans up; patient completes activity. [place] assists only prior to or following the activity. 4-Supervision or Touching Assistance-helper provides verbal cues and/or touching/steadying and/or contact guard assistance as patient completes activity. Assistance may be provided throughout the activity or intermittently. 3-Partial/Moderate Assistance-helper does LESS THAN HALF the effort. [place] lifts, holds or supports trunk or limbs, but provides less than half the effort. 2-Substantial/Maximal Assistance-helper does MORE THAN HALF the effort. [place] lifts or holds trunk or limbs and provides more than half the effort. 8-Khqdmkxvc-qxybrq does ALL the effort. Patient does none of the effort to complete the activity. Or, the assistance of 2 or more helpers is required for the patient to complete the activity. If activity was not attempted, code reason: 7-Patient Refused. 9-Not Applicable-not attempted and the patient did not perform the activity before the current illness, exacerbation or injury. 10-Not Attempted due to Environmental Limitations-(lack of equipment, weather restraints, etc.). 88-Not Attempted due to Medical Conditions or Safety Concerns. Eating (QC): 6 Oral Hygiene (QC): 6 Shower/Bathe Self (QC): 6 Upper Body Dressing (QC): 6 Lower Body Dressing (QC): 6 On/Off Footwear: 6 Toileting Hygiene (QC): 6 Toilet Transfer (QC): 6 Other Treatment Pt in bed, transferred supine to sit EOB, then used FWW to gather clothes from closet, transfer into bathroom to complete toileting and showering, then she transferred to EOB to don clothes. Pt took rest breaks as needed. Pt then sat in w/c at sink to complete grooming tasks independently. Pt propelled w/c to therapy gym. OT Tx focused on increasing BUE Strength, activity tolerance, and fine motor strength/coordination. Pt completed x10 mins on arm bike, x15 Watt resistance, 3 rest breaks. She then removed beads from moderate resistance (green) theraputty, able to locate all beads without cues. Pt propelled w/c back to her room, then transferred to recliner. Post tx, pt in recliner, call light in reach and all needs met. Education OT Patient Education: Correct positioning, Energy conservation, Exercise program, Modified ADL techniques, Progress toward Goal/Update tx plan, Purpose of tx/functional activities, Rehab process Teaching Recipient: Patient Teaching Methods: Discussion Response to Teaching: Verbalize Understanding BIMS CAM BIMS Expression of Ideas and Wants: Without Difficulty Understanding Verbal Content: Understands Brief Interview/Mental Status: Yes IRF FRANCO BIMS: IRF FRANCO BIMS Response (Comments) Value Repitition of Three Words Two 2 Recalls Socks Yes, No Cue Required 2 Recalls Blue Yes, No Cue Required 2 Recalls Bed Yes, No Cue Required 2 Year Correct 3 Month Accurate Within 5 Days 2 Day Correct 1 Total 14 Should Staff Asses. Mental St.: No CAM Mental Status Change/Baseline: 0 Inattention: 0 Disorganized thinkin Altered level of consciousness: 0 OT Short Term Goals Short Term Goals Time Frame: Aug 31, 2022 Upper body dressin Lower body dressin Putting on/taking off footwear: 5 OT Marketing Sales Manager Goals [facility] Goals Time Frame: Sep 07, 2022 Acute change in mental status: 0 Inattention: 0 Disorganized thinkin Altered level of consciousness: 0 Eating (QC): 6 Oral Hygiene (QC): 6 Toileting Hygiene (QC): 6 Shower/Bathe Self (QC): 6 Upper Body Dressing (QC): 6 Lower Body Dressing (QC): 6 On/Off Footwear (QC): 6 Additional Goals: 1-Demonstrate ADL Tasks, 2-Verbalize Understanding, 3- ImproveStrength/Jsosie 1=Demonstrate adherence to instructed precautions during ADL tasks. 2=Patient will verbalize/demonstrate understanding of assistive devices/modifications for ADL. 3=Patient will improve strength/tolerance for activity to enable patient to perform ADL's. OT Education/Plan Problem List/Assessment Assessment: Decreased Activ Tolerance, Decreased UE Strength, Impaired I ADL's Discharge Recommendations Plan/Recommendations: Continue POC Treatment Plan/Plan of Care Patient would benefit from OT for education, treatment and training to promote independence in ADL's, mobility, safety and/or upper extremity function for ADL's. Plan of Care: ADL Retraining, Functional Mobility, Group Exercise/Act as Ind, UE Funct Exercise/Act Treatment Duration: Sep 07, 2022 Frequency: At least 5 of 7 days/Wk (IRF) Estimated Hrs Per Day: 1.5 hours per day Agreement: Yes Rehab Potential: Fair Time Start Time: 10:15 Stop Time: 11:45 DATE: Aug 24, 2022 Total Time Billed (hr/min): 90 Billed Treatment Time 1, ADL 4 (60'), EX (15'), FA (15') KARLA CORBETT OT Aug 24, 2022 11:17
--- NOTE | 2022-08-24 13:28 | Physical Therapy Daily Note ---
PT Daily Note-Current Subjective Pt. sitting up in recliner after Rx , just finished lunch, asks to go to bathroom. No c/o pain or dizziness Pain Location: No Pain Reported Section J - Health Conditions 1. Rarely or not at all 2. Occasionally 3. Frequently 4. Almost constantly 8. Unable to answer Pain Effect on Sleep: 1 Pain Interference with Therapy: 1 Pain Interference w/Day-to-Day: 1 Mental Status Patient Orientation: Normal For Age Transfers SCALE: Activities may be completed with or without assistive devices. 7-Umybourxhd-gukxwbm completes the activity by him/herself with no assistance from a helper. 5-Set-up or Clean-up Assistance-helper sets up or cleans up; patient completes activity. [place] assists only prior to or following the activity. 4-Supervision or Touching Assistance-helper provides verbal cues and/or touching/steadying and/or contact guard assistance as patient completes activity. Assistance may be provided throughout the activity or intermittently. 3-Partial/Moderate Assistance-helper does LESS THAN HALF the effort. [place] lifts, holds or supports trunk or limbs, but provides less than half the effort. 2-Substantial/Maximal Assistance-helper does MORE THAN HALF the effort. [place] lifts or holds trunk or limbs and provides more than half the effort. 8-Rchkmsqmn-ownpbs does ALL the effort. Patient does none of the effort to complete the activity. Or, the assistance of 2 or more helpers is required for the patient to complete the activity. If activity was not attempted, code reason: 7-Patient Refused. 9-Not Applicable-not attempted and the patient did not perform the activity before the current illness, exacerbation or injury. 10-Not Attempted due to Environmental Limitations-(lack of equipment, weather restraints, etc.). 88-Not Attempted due to Medical Conditions or Safety Concerns. Sit to Lying (QC): 6 Sit to Stand (QC): 6 Chair/Hkk-tc-Gyqns Xfer(QC): 4 Toilet Transfer (QC): 6 Weight Bearing Right Lower Extremity: Right Full Weight Bearing Left Lower Extremity: Left Full Weight Bearing Gait Training Does the Patient Walk?: Yes Walk 10 feet (QC): 4 Walk 50 ft with 2 Turns(QC): 4 Gait Persons Needed: 1 Gait Assistive Device: FWW gait 75ftx2, 50ft x 2 FWW CGA and close supervision and monitoring secondary to dizziness and orthostatic hypotension in previous Rxs. None noted this Rx. Exercises Supine Ex: Heel Slides, Hip abd/add Supine Reps: 10 Seated Therapy Exercises: Ankle pumps, Sit to stand, Long arc quads, Hip flexion Seated Reps: 12 Treatments TRFs, gait, toileting, seated therx, sup therex Assessment Current Status: Good Progress no c/o dizziness or SOB, seated BP 144/67, HR 89 BPM standing BP 126/58 and 122/57 HR 88 BPM O2 sats 98% PT Short Term Goals Short Term Goals Time Frame: Aug 28, 2022 Sit to lyin (SBA) Lying to sitting on side of be: 4 (SBA) Sit to stand: 4 (SBA) Chair/ntk-mq-desxc transfer: 4 (SBA) Toilet transfer: 4 (SBA) Car transfer: 4 (SBA) Walk 10 feet: 4 (SBA) Walk 50 feet with two turns: 4 (SBA) Walk 150 feet: 4 (SBA) Walking 10ft on uneven surface: 4 (SBA) 1 step (curb): 4 (SBA) 4 steps: 4 (SBA) Picking up objects: 4 (SBA, using drapery sewer hand) Does pt use a wc or scooter: No Type: N/A PT Mcfp Goals Senior Benefits Analyst Goals PT Senior Benefits Analyst Goals Time Frame: Sep 11, 2022 Roll Left & Right (QC): 6 Sit to Lying (QC): 6 Lying-Sitting on Side/Bed(QC): 6 Sit to Stand (QC): 6 Chair/Ktr-jh-Dvgud Xfer(QC): 6 Toilet Transfer (QC): 6 Car Transfer (QC): 6 Does the Patient Walk: Yes Walk 10 feet (QC): 6 Walk 50ft with 2 Turns (QC): 6 Walk 150 ft (QC): 6 Walking 10ft on Uneven Surface: 6 1 Step (curb) (QC): 6 4 Steps (QC): 6 12 Steps (QC): 88 Picking up an Object (QC): 6 Does the Pt use WC or Scooter?: No Wheel 50 feet with 2 turns (QC: 9 Type: N/A Wheel 150 feet: 9 Type: N/A PT Plan Treatment/Plan Treatment Plan: Continue Plan of Care Treatment Plan: Bed Mobility, Education, Functional Activity Jossie, Functional Strength, Group Therapy, Gait, Safety, Therapeutic Exercise, Transfers Treatment Duration: Sep 04, 2022 Frequency: At least 5 of 7 days/Wk (IRF) Estimated Hrs Per Day: 1.5 hours per day Patient and/or Family Agrees t: Yes Safety Risks/Education Patient Education: Gait Training, Transfer Techniques, Correct Positioning, Safety Issues Teaching Recipient: Patient Teaching Methods: Demonstration, Discussion Response to Teaching: Verbalize Understanding, Return Demonstration, Reinforcement Needed Time Time In: 1245 Time Out: 1315 DATE: Aug 24, 2022 Total Billed Treatment Time: 30 Total Billed Treatment 1,GT20m,EX10m HARJEET JOSEPH MEDIA MONITOR Aug 24, 2022 13:27
[2022-08-24] MEDS ORDERED: MIDO10TA PO (16:18)
[2022-08-24] MEDS ORDERED: ZOLP5TAB7 PO (16:18)
--- NOTE | 2022-08-24 16:19 | D/C HH Face to Face Order ---
D/C Face to Face Orders Reconcile Patient Problems Problems Reviewed?: Yes Instructions for Patient Via [facility], Patient Instructions/FollowUp: PCP Dr Montiel in 1 week Physician to follow Patient: Dinesh Discharge Diet for Home: No Restrictions Patient Problems: Falls Dementia Patient Data-Allergies,Ht & Wt Patient Allergies: Coded Allergies: No Known Drug Allergies (Unverified , 04/01/21) Home Health Need/Face to Face Date of Face to Face: Aug 24, 2022 Clinical Findings: Generalized weakness and fatigue, Muscle weakness I have seen Pt ajip-mh-kjra: Yes Discharged To: Home Diagnosis/Conditions: Debility Patient is Homebound due to: CognItive deficits, Shantel fall risk due to instabilty, Muscle weakness Homebound Status Due to the above stated illness, injury or surgical procedure (medical condition or diagnosis) and associated clinical findings, the patient is homebound because of his/her inability to leave home except with aid of a supportive device and/or person AND leaving the home requires a considerable and taxing effort or is medically contraindicated. Pt req the following assistanc: Walker Home Health Nursing Orders Home Health Services Order: Nursing Services, It Program Engagement Director-Evaluate & Treat, Physical Therapy-Evaluate & Treat Certify Stmt I certify that this patient is under my care and that I, a nurse practitioner or a physician; a licensed occupational therapy assistant working with me, had a face to face encounter that - meets the physician face to face encounter requirements with this patient as dated. BERTO VIDES DO Aug 24, 2022 16:19
[2022-08-24] MEDS: ENOXAPARIN INJECTION 30 MG/0.3 ML SYR SC SCH (18:33)
[2022-08-24 21:00] VITALS: BP 142/72
[2022-08-24] MEDS: AMITRIPTYLINE 150 MG (ELAVIL) TABLET PO SCH (21:27)
[2022-08-24] MEDS: ZOLPIDEM 5 MG (AMBIEN) TAB PO SCH (21:27)
[2022-08-25 07:09] VITALS: BP 106/65
--- NOTE | 2022-08-25 09:18 | Occupational Ther Daily Note ---
OT Current Status-Daily Note Subjective Pt denies pain, reports being excited about upcoming discharge later today. Appearance Pt left sitting in recliner, all needs within reach at OT departure. Mental Status/Objective Patient Orientation: Person, Place, Time, Situation ADL-Treatment Therapy Code Descriptions/Definitions Functional [place] Measure: 0=Not Assessed/NA 4=Minimal Assistance 1=Total Assistance 5=Supervision or Setup 2=Maximal Assistance 6=Modified [place] 3=Moderate Assistance 7=Complete IndependenceSCALE: Activities may be completed with or without assistive devices. 2-Betrznkcbr-qccxpft completes the activity by him/herself with no assistance from a helper. 5-Set-up or Clean-up Assistance-helper sets up or cleans up; patient completes activity. [place] assists only prior to or following the activity. 4-Supervision or Touching Assistance-helper provides verbal cues and/or touching/steadying and/or contact guard assistance as patient completes activity. Assistance may be provided throughout the activity or intermittently. 3-Partial/Moderate Assistance-helper does LESS THAN HALF the effort. [place] lifts, holds or supports trunk or limbs, but provides less than half the effort. 2-Substantial/Maximal Assistance-helper does MORE THAN HALF the effort. [place] lifts or holds trunk or limbs and provides more than half the effort. 9-Iswidjsof-cufmgu does ALL the effort. Patient does none of the effort to complete the activity. Or, the assistance of 2 or more helpers is required for the patient to complete the activity. If activity was not attempted, code reason: 7-Patient Refused. 9-Not Applicable-not attempted and the patient did not perform the activity bef ore the current illness, exacerbation or injury. 10-Not Attempted due to Environmental Limitations-(lack of equipment, weather r estraints, etc.). 88-Not Attempted due to Medical Conditions or Safety Concerns. Oral Hygiene (QC): 6 Upper Body Dressing (QC): 6 Lower Body Dressing (QC): 6 On/Off Footwear: 6 Toileting Hygiene (QC): 6 Toilet Transfer (QC): 6 Pt requesting to use toilet at OT arrival. She independently stood, ambulated into bathroom and completed all steps of toileting without assist. She retrieved clothing from closet and donned all (shirt, underwear,pants, compression socks, and shoes) independently. Other Treatment Pt ambulated around room to organize/pack belongings for upcoming discharge. She utilized walker, no unsteadiness or concerns for safety observed. She does report mild fatigue and dizziness towards end of activity and requests to sit. BP in sittin/54, HR 102 bpm. BP in standin/46, HR-98 bpm. LE's wrapped by OT and education provided on drinking more fluids throughout the day. After sitting for ~2 minutes, pt reports symptoms subside. Pt declines any further activity as she reports that she wants to conserve energy for the trip back home. Education OT Patient Education: Energy conservation, Progress toward Goal/Update tx plan, Purpose of tx/functional activities Teaching Recipient: Patient Teaching Methods: Discussion Response to Teaching: Verbalize Understanding, Return Demonstration OT Short Term Goals Short Term Goals Time Frame: Aug 31, 2022 Upper body dressin Lower body dressin Putting on/taking off footwear: 5 OT Rope Walker Goals [facility] Goals Time Frame: Sep 07, 2022 Acute change in mental status: 0 Inattention: 0 Disorganized thinkin Altered level of consciousness: 0 Eating (QC): 6 Oral Hygiene (QC): 6 (met) Toileting Hygiene (QC): 6 (met) Shower/Bathe Self (QC): 6 Upper Body Dressing (QC): 6 (met) Lower Body Dressing (QC): 6 (met) On/Off Footwear (QC): 6 (met) Additional Goals: 1-Demonstrate ADL Tasks, 2-Verbalize Understanding, 3- ImproveStrength/Jossie 1=Demonstrate adherence to instructed precautions during ADL tasks. 2=Patient will verbalize/demonstrate understanding of assistive devices/modifications for ADL. 3=Patient will improve strength/tolerance for activity to enable patient to perform ADL's. OT Education/Plan Problem List/Assessment Assessment: Decreased Activ Tolerance, Impaired I ADL's Discharge Recommendations Plan/Recommendations: Continue POC Treatment Plan/Plan of Care Treatment,Training & Education: Yes Patient would benefit from OT for education, treatment and training to promote independence in ADL's, mobility, safety and/or upper extremity function for ADL's. Plan of Care: ADL Retraining, Functional Mobility, Group Exercise/Act as Ind, UE Funct Exercise/Act Treatment Duration: Sep 07, 2022 Frequency: At least 5 of 7 days/Wk (IRF) Estimated Hrs Per Day: 1.5 hours per day Agreement: Yes Rehab Potential: Fair Time Start Time: 08:35 Stop Time: 09:18 DATE: Aug 25, 2022 Total Time Billed (hr/min): 43 Billed Treatment Time 1 visit ADL x2 (30 min) FA (13 min) Sharon Jasso OT Aug 25, 2022 09:18
[2022-08-25] MEDS: TRIM/SULFAMETH 160/800 (SEPTRA DS) TAB PO SCH (09:28)
[2022-08-25] MEDS: MIDODRINE 10 MG (PROAMATINE) TAB PO SCH (09:28)
[2022-08-25] MEDS: DOCUSATE SODIUM 100 MG (COLACE) CAP PO SCH (09:28)
[2022-08-25] MEDS: MEMANTINE 10 MG (NAMENDA) TABLET PO SCH (09:28)
[2022-08-25] MEDS: SENNA W/DOCUSATE (SENOKOT S) TABLET PO SCH (09:28)
[2022-08-25] MEDS: DONEPEZIL 10 MG (ARICEPT) TAB PO SCH (09:28)
[2022-08-25] MEDS: CLOPIDOGREL 75 MG (PLAVIX) TABLET PO SCH (09:28)
[2022-08-25] MEDS: polyethylene glycoL POWDER 17 GM (MIRALAX) PACK PO SCH (09:30)
--- NOTE | 2022-08-25 09:36 | Discharge Summary ---
Diagnosis/Chief Complaint Date of Admission Aug 20, 2022 at 16:53 Date of Discharge Discharge Date: Aug 25, 2022 Discharge Diagnosis Assessment: Falls and debility Recent UTI Dementia TIA? Orthostatic hypotension 08/23/2022 started on midodrine Plan: Home meds Supportive care Monitor closely Aggressive PT and OT 08/21/2022: Supportive care continues Focus on fall prevention 08/22/2022: Fall risk prevention 08/23/2022: Midodrine initiation 08/24/2022: DC tomorrow (1) Frequent falls Status: Acute (2) General weakness Status: Acute (3) UTI (urinary tract infection) Status: Acute (4) Closed head injury Status: Acute Discharge Summary Discharge Physical Examination Allergies: Coded Allergies: No Known Drug Allergies (Unverified , 04/01/21) Vitals & I&Os Vital Signs Date Time Temp Pulse Resp B/P (MAP) Pulse Ox O2 Delivery O2 Flow Rate FiO2 08/25/22 11:29 36.7 92 18 106/65 93 08/25/22 09:00 Room Air 08/23/22 11:10 1.50 General Appearance: Alert, Cooperative, Other (poor recall) Respiratory: Clear to Auscultation Cardiovascular: Regular Rate Hospital Course Was the Problem List Reviewed?: Yes Uneventful hospital course. Patient received aggressive therapy with use of walker but remained a very high fall risk. Ambien was decreased to 2.5mg with hopes of weaning completely to help balance. Orthostasis was noted so Midodrine was ordered with good results. UTI treatment completed and patient was ready for DC. Labs (last 24 hrs) Laboratory Tests 08/21/22 05:22: White Blood Count 6.6, Red Blood Count 3.82, Hemoglobin 11.3L, Hematocrit 36, M dong Corpuscular Volume 93, Mean Corpuscular Hemoglobin 30, Mean Corpuscular Hemoglobin Concent 32, Red Cell Distribution Width 13.1, Platelet Count 191, Mean Platelet Volume 9.2, Immature Granulocyte % (Auto) 0, Neutrophils (%) (Auto) 68, Lymphocytes (%) (Auto) 19, Monocytes (%) (Auto) 7, Eosinophils (%) (Auto) 5, Basophils (%) (Auto) 1, Neutrophils # (Auto) 4.5, Lymphocytes # (Auto) 1.3, Monocytes # (Auto) 0.5, Eosinophils # (Auto) 0.3, Basophils # (Auto) 0.1, Immature Granulocyte # (Auto) 0.0, Sodium Level 139, Potassium Level 4.1, Chloride Level 108H, Carbon Dioxide Level 22, Anion Gap 9, Blood Urea Nitrogen 11, Creatinine 1.07, Estimat Glomerular Filtration Rate 51, BUN/Creatinine Ratio 10, Glucose Level 91, Calcium Level 8.4L, Corrected Calcium 9.0, Total Bilirubin 0.4, Aspartate Amino Transf (AST/SGOT) 32, Alanine Aminotransferase (ALT/SGPT) 33, Alkaline Phosphatase 108, Total Protein 5.9L, Albumin 3.3 Pending Labs Laboratory Tests 08/21/22 05:22: White Blood Count 6.6, Red Blood Count 3.82, Hemoglobin 11.3, Hematocrit 36, M dong Corpuscular Volume 93, Mean Corpuscular Hemoglobin 30, Mean Corpuscular Hemoglobin Concent 32, Red Cell Distribution Width 13.1, Platelet Count 191, Mean Platelet Volume 9.2, Immature Granulocyte % (Auto) 0, Neutrophils (%) (Auto) 68, Lymphocytes (%) (Auto) 19, Monocytes (%) (Auto) 7, Eosinophils (%) (Auto) 5, Basophils (%) (Auto) 1, Neutrophils # (Auto) 4.5, Lymphocytes # (Auto) 1.3, Monocytes # (Auto) 0.5, Eosinophils # (Auto) 0.3, Basophils # (Auto) 0.1, Immature Granulocyte # (Auto) 0.0, Sodium Level 139, Potassium Level 4.1, Chloride Level 108, Carbon Dioxide Level 22, Anion Gap 9, Blood Urea Nitrogen 11, Creatinine 1.07, Estimat Glomerular Filtration Rate 51, BUN/Creatinine Ratio 10, Glucose Level 91, Calcium Level 8.4, Corrected Calcium 9.0, Total Bilirubin 0.4, Aspartate Amino Transf (AST/SGOT) 32, Alanine Aminotransferase (ALT/SGPT) 33, Alkaline Phosphatase 108, Total Protein 5.9, Albumin 3.3 Discharge Home Medications: Active Scripts Active Midodrine HCl 10 Mg Tablet 5 Mg PO TID Zolpidem Tartrate 5 Mg Tablet 5 Mg PO HS 30 Days Take 1/2 pill at night Reported Miralax (Polyethylene Glycol 3350) 17 Gram Powd.pack 17 Gm PO DAILY Visine Dry Eye Relief (Polyethylene Glycol 400) 1 % Drops 1-2 Drops OU DAILY Ibuprofen 200 Mg Capsule 400 Mg PO Q8H PRN Red Yeast Rice 600 Mg Tablet 600 Mg PO DAILY Flaxseed Oil 1,000 Mg Capsule 1,000 Mg PO DAILY Fish Oil 1,200 mg Fish Oil (Fish Oil/Dha/Epa) 1,200 Mg-144 Mg-216 Mg Capsule 1 Each PO DAILY Vitamin D3 (Cholecalciferol (Vitamin D3)) 50 Mcg (2000 Unit) Tablet 50 Mcg PO DAILY Vitamin B-12 (Cyanocobalamin (Vitamin B-12)) 500 Mcg Tablet 500 Mcg PO DAILY Citalopram HBr (Citalopram Hydrobromide) 20 Mg Tablet 20 Mg PO DAILY Clopidogrel (Clopidogrel Bisulfate) 75 Mg Tablet 75 Mg PO DAILY Memantine HCl 10 Mg Tablet 10 Mg PO BID Donepezil HCl 10 Mg Tablet 10 Mg PO DAILY Amitriptyline HCl 50 Mg Tablet 150 Mg PO HS TAKES 3 (50MG) TABS Instructions to patient/family Please see electronic discharge instructions given to patient. Diagnosis/Problems Diagnosis/Problems (1) Frequent falls Status: Acute (2) General weakness Status: Acute (3) UTI (urinary tract infection) Status: Acute (4) Closed head injury Status: Acute BERTO VIDES DO Aug 25, 2022 09:36
[2022-08-25 11:29] VITALS: BP 106/65
[2022-08-25] MEDS ORDERED: ENOXAPARIN 40 MG/0.4 ML (LOVENOX) SYR SC SCH (19:00)
--- NOTE | 2022-08-27 09:26 | Therapy Team Discharge Summary ---
Therapy Discharge Summary Discharge Recommendations Date of Discharge Aug 25, 2022 at 11:15 Physical Therapy Patient came to rehab with debility. Upon evaluation patient performed rolling and sit to supine with independence, supine to sit with CGA, sit <-> stand and transfers with CGA, car transfer CGA, ambulated 100' with a rolling walker with CGA (including 50' with at least 2 turns of 90 degrees and 10' over an uneven surface), can go up and down 4 steps using 2 handrails with CGA and could nut picker an object from the floor using a manager video with CGA. Patient has been performing bed mobility and transfer training, balance and endurance training, functional strengthening, stair training, gait training, and education. Patient has made very little progress. 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 Now, patient performs rolling and supine <-> sit with independence, sit <-> stand independent, transfers CGA, ambulates short distances using a rolling walker with CGA, setup for WC mobility. Patient has had difficulties with her blood pressure. Patient has been discharged from this facility and will be discharged from PT at this time. Roll Left to Right (QC): 6 Sit to Lying (QC): 6 Lying to Sitting/Side of Bed(Q: 6 Sit to Stand (QC): 6 Chair/Aci-ab-Khzmi Xfer(QC): 4 Toilet Transfer (QC): 5 Car Transfer (QC): 4 (CGA) Does the Patient Walk: Yes Mode of Locomotion: Walk Anticipated Mode of Locomotion: Walk Walk 10 feet (QC): 4 Walk 50 ft with 2 Turns(QC): 4 Walk 150 ft (QC): 4 Walking 10ft on uneven surface: 4 Distance: 100'x3 Gait Assistive Device: FWW Does the Pt Use a Wheelchair: Yes Wheel 50 ft with 2 turns (QC): 5 Wheel 150 ft (QC): 5 Type of Wheelchair: Manual #of Steps: 4 1 Step (curb) (QC): 4 4 Steps (QC): 4 12 Steps (QC): 88 Walking Assistive Device: Cane Balance Sitting Static: Normal Balance Sitting Dynamic: Normal Balance-Standing Static: Poor Picking up an Object (QC): 4 Occupational Therapy Decreased Activ Tolerance, Impaired I ADL's Eating (QC): 6 Oral Hygiene (QC): 6 Shower/Bathe Self (QC): 6 Upper Body Dressing (QC): 6 Lower Body Dressing (QC): 6 On/Off Footwear (QC): 6 Toileting Hygiene (QC): 6 PT Biochemical Development Engineer Goals Biochemical Development Engineer Goals PT Senior Living Goals Time Frame: Sep 11, 2022 Roll Left to Right (QC): 6 Sit to Lying (QC): 6 Lying-Sitting on Side/Bed(QC): 6 Sit to Stand (QC): 6 Chair/Xgf-mw-Trfiq Xfer(QC): 6 Toilet/Commode Transfer (QC): 6 Car Transfer (QC): 6 Does the Patient Walk: Yes Walk 10 feet (QC): 6 Walk 10ft-Uneven Surface(QC): 6 Walk 50ft with 2 Turns (QC): 6 Walk 150 ft (QC): 6 Does the Pt use WC or Scooter?: No Wheel 50 feet with 2 turns (QC: 9 Type: N/A Wheel 150 feet: 9 Type: N/A 1 Step (curb) (QC): 6 4 Steps (QC): 6 12 Steps (QC): 88 Picking up an Object (QC): 6 OT Senior Living Goals Senior Living Goals Time Frame: Sep 07, 2022 Acute change in mental status: 0 Inattention: 0 Disorganized thinkin Altered level of consciousness: 0 Eating (QC): 6 Oral Hygiene (QC): 6 (met) Toileting Hygiene (QC): 6 (met) Shower/Bathe Self (QC): 6 Upper Body Dressing (QC): 6 (met) Lower Body Dressing (QC): 6 (met) On/Off Footwear (QC): 6 (met) Additional Goals: 1-Demonstrate ADL Tasks, 2-Verbalize Understanding, 3- ImproveStrength/Jossie 1=Demonstrate adherence to instructed precautions during ADL tasks. 2=Patient will verbalize/demonstrate understanding of assistive devices/modifications for ADL. 3=Patient will improve strength/tolerance for activity to enable patient to perform ADL's. JOSE DAVID CASTANON PT Aug 27, 2022 09:26
--- NOTE | 2022-08-27 10:35 | Therapy Team Discharge Summary ---
Therapy Discharge Summary Discharge Recommendations Date of Discharge Aug 25, 2022 at 11:15 Physical Therapy Roll Left to Right (QC): 6 Sit to Lying (QC): 6 Lying to Sitting/Side of Bed(Q: 6 Sit to Stand (QC): 6 Chair/Rxx-gt-Acqzw Xfer(QC): 4 Toilet Transfer (QC): 5 Car Transfer (QC): 4 (CGA) Does the Patient Walk: Yes Mode of Locomotion: Walk Anticipated Mode of Locomotion: Walk Walk 10 feet (QC): 4 Walk 50 ft with 2 Turns(QC): 4 Walk 150 ft (QC): 4 Walking 10ft on uneven surface: 4 Distance: 100'x3 Gait Assistive Device: FWW Does the Pt Use a Wheelchair: Yes Wheel 50 ft with 2 turns (QC): 5 Wheel 150 ft (QC): 5 Type of Wheelchair: Manual #of Steps: 4 1 Step (curb) (QC): 4 4 Steps (QC): 4 12 Steps (QC): 88 Walking Assistive Device: Cane Balance Sitting Static: Normal Balance Sitting Dynamic: Normal Balance-Standing Static: Poor Picking up an Object (QC): 4 Occupational Therapy Pt admitted to ARU with debility. At [facility], pt was independent with ADLs and functional mobility, using SPC as needed. Upon initial evaluation, pt was independent with eating, required min A UE dressing, and SBA oral care, showering, LE dressing, footwear and toileting. OT Tx focused on increasing BUE strength and activity tolerance, and increasing safety and independence with ADLS and functional mobility. Pt made good progress towards goals, attaining all LTGs. Pt discharged home, d/c from OT Decreased Activ Tolerance, Impaired I ADL's Eating (QC): 6 Oral Hygiene (QC): 6 Shower/Bathe Self (QC): 6 Upper Body Dressing (QC): 6 Lower Body Dressing (QC): 6 On/Off Footwear (QC): 6 Toileting Hygiene (QC): 6 PT Portable Grinding Machine Operator Goals Halfway Goals PT Portable Grinding Machine Operator Goals Time Frame: Sep 11, 2022 Roll Left to Right (QC): 6 Sit to Lying (QC): 6 Lying-Sitting on Side/Bed(QC): 6 Sit to Stand (QC): 6 Chair/Dwv-lv-Qlspk Xfer(QC): 6 Toilet/Commode Transfer (QC): 6 Car Transfer (QC): 6 Does the Patient Walk: Yes Walk 10 feet (QC): 6 Walk 10ft-Uneven Surface(QC): 6 Walk 50ft with 2 Turns (QC): 6 Walk 150 ft (QC): 6 Does the Pt use WC or Scooter?: No Wheel 50 feet with 2 turns (QC: 9 Type: N/A Wheel 150 feet: 9 Type: N/A 1 Step (curb) (QC): 6 4 Steps (QC): 6 12 Steps (QC): 88 Picking up an Object (QC): 6 OT Halfway Goals Halfway Goals Time Frame: Sep 07, 2022 Acute change in mental status: 0 Inattention: 0 Disorganized thinkin Altered level of consciousness: 0 Eating (QC): 6 Oral Hygiene (QC): 6 (met) Toileting Hygiene (QC): 6 (met) Shower/Bathe Self (QC): 6 (met) Upper Body Dressing (QC): 6 (met) Lower Body Dressing (QC): 6 (met) On/Off Footwear (QC): 6 (met) Additional Goals: 1-Demonstrate ADL Tasks, 2-Verbalize Understanding, 3- ImproveStrength/Jossie 1=Demonstrate adherence to instructed precautions during ADL tasks. 2=Patient will verbalize/demonstrate understanding of assistive device s/modifications for ADL. 3=Patient will improve strength/tolerance for activity to enable patient to perform ADL's. KARLA CORBETT OT Aug 27, 2022 10:35
== END 2022-08-25 11:15 | disposition home health service (06) | DRG 948 ==
PROVIDERS: ADMIT Internal Medicine; ATTEND Internal Medicine
DX: R53.1 Weakness (principal); N39.0 Urinary tract infection, site not specified; Z91.81 History of falling; F03.90 Unspecified dementia, unspecified severity, without behavioral disturbance, psychotic disturbance, mood disturbance, and anxiety; I95.1 Orthostatic hypotension; F41.9 Anxiety disorder, unspecified; F32.A Depression, unspecified; Z95.0 Presence of cardiac pacemaker; Z23 Encounter for immunization
CPT/HCPCS: 36415; 80053; 85025; 90662; 94664; 94760